=== PATIENT | female | born 1975 | race Caucasian/White ===

== ENCOUNTER 2018-03-23 10:05 | Inpatient (IN) | payer BC ==
[~2018-03-23] VITALS: Ht 152.4 cm; Wt 52.8 kg
[2018-03-23] VITALS (18 sets, daily range): BP systolic 101–132; BP diastolic 65–87
[~2018-03-23 10:05] MED LIST: ASPIRIN81 MG PO; ENBREL50 MG/1 ML INJ; PLAVIX75 MG PO; TRAZODONE HCL100 MG PO; XARELTO10 MG PO
[2018-03-23] MEDS ORDERED: LACTATED RINGER'S 1,000 ML IV SCH (10:24)
[2018-03-23] MEDS ORDERED: PROMETHAZINE HCL (IM) 25 MG/ML VIAL IV PRN (10:30)
[2018-03-23] MEDS ORDERED: ENALAPRILAT IV INJ 1.25 MG/ML VIAL IV PRN (10:30)
[2018-03-23] MEDS ORDERED: ONDANSETRON HCL INJ 2 MG/ML VIAL IV PRN (10:30)
[2018-03-23] MEDS ORDERED: SODIUM CHLORIDE FLUSH 10 ML SYR INJ PRN (10:30)
[2018-03-23] MEDS ORDERED: HYDROMORPHONE 1MG/1ML INJ IV PRN ×2 (10:30→20:30)
[2018-03-23] MEDS ORDERED: PROMETHAZINE 12.5MG/ NACL 0.9% 50 ML IV PRN (11:00)
[2018-03-23] MEDS: HYDROMORPHONE 2MG/ML 2 MG/ML ML IV PRN ×3 (11:30→17:57)
[2018-03-23] MEDS: FAMOTIDINE 20 MG/2 ML VIAL IV SCH ×2 (11:30→23:29)
[2018-03-23] MEDS ORDERED: PREDNISONE20 MG PO (11:36)
[2018-03-23] MEDS ORDERED: NORCO 10-325 T1 EACH PO (11:36)
[2018-03-23] MEDS ORDERED: eliquis PO (11:36)
[2018-03-23 11:57] LABS: BASOPHILS % 0.2 % (0.0-1.0); EOSINOPHILS # (AUTO) 0.1 (0.0-0.4); EOSINOPHILS % 0.9 % (0.0-6.0); HEMATOCRIT 34.6 % (34.2-44.1); HEMOGLOBIN 11.5 g/dL (12.0-16.0); LYMPHOCYTES # (AUTO) 0.9 (1.0-3.2); MEAN CORPUSCULAR HEMOGLOBIN 31.5 pg (28-32); MEAN CORPUSCULAR HGB CONC 33.2 g/dL (31-35); MEAN CORPUSCULAR VOLUME 94.8 fL (81-99); MONOCYTES # (AUTO) 0.5 (0.2-0.8); MONOCYTES % 9.3 % (4.4-11.3); NEUTROPHILS # (AUTO) 3.9 (2.1-6.9); NEUTROPHILS % 73.4 % (38.7-80.0); PLATELET COUNT 214 x10e3/uL (140-360); RED BLOOD COUNT 3.65 x10e6/uL (3.6-5.1); RED CELL DISTRIBUTION WIDTH 13.9 % (11.7-14.4)
[2018-03-23 12:06] LABS: INR 0.82; PROTHROMBIN TIME 12.1 seconds (11.9-14.5)
[2018-03-23 12:07] LABS: PARTIAL THROMBOPLASTIN TIME 40.7 seconds (23.8-35.5)
[2018-03-23 12:15] LABS: ALANINE AMINOTRANSFERASE 12 IU/L (0-55); ALBUMIN 3.4 g/dL (3.5-5.0); ALBUMIN/GLOBULIN RATIO 0.9 (0.8-2.0); ALKALINE PHOSPHATASE 55 IU/L (40-150); ANION GAP 13.5 mmol/L (8-16); BLOOD UREA NITROGEN 17 mg/dL (7-26); BUN/CREATININE RATIO 27 (6-25); CALCIUM 9.3 mg/dL (8.4-10.2); CARBON DIOXIDE 24 mmol/L (22-29); CHLORIDE 105 mmol/L (98-107); CREATINE KINASE 33 IU/L (29-168); CREATININE, SERUM 0.64 mg/dL (0.57-1.11); EST GLOMERULAR FILTRATION RATE > 60 ML/MIN (60-); GLUCOSE 87 mg/dL (74-118); POTASSIUM 3.5 mmol/L (3.5-5.1); SODIUM 139 mmol/L (136-145)
--- NOTE | 2018-03-23 13:17 | History and Physical ---
INDICATION: Cold leg. Ms. Newell is a 43-year-old female with history of rheumatoid arthritis, currently in remission, along with severe peripheral arterial disease, status post multiple procedures on her right popliteal, anterior and posterior tibial as well as peroneal artery. Last angiogram was approximately 3 months ago. She had severe gangrene of her toes, which improved and was healing. However, approximately 2 days ago, she started experiencing severe pain in her right foot with coolness. Arterial duplex done 2 weeks ago was normal. Arterial duplex done yesterday show an occluded posterior tibial artery, which was chronically occluded and monophasic with reduced flow in her anterior tibial and peroneal arteries. She was asked to be admitted to the hospital for the above-mentioned critical limb ischemia. PAST MEDICAL HISTORY: Listed above. SOCIAL HISTORY: Patient has smoked in the past, does not smoke at present. DRUG ALLERGIES: SULFA AND PENICILLIN. REVIEW OF SYSTEMS: Negative, except as dictated in the history of present illness. PHYSICAL EXAMINATION VITAL SIGNS: Afebrile. Heart rate is 94. Blood pressure 121/88, 81. O2 sat 99%. CARDIOVASCULAR: Regular rhythm with no murmurs or gallops. RESPIRATORY: Clear to auscultation bilaterally. ABDOMEN: Soft. Bowel sounds heard adequately. EXTREMITIES: No edema. Right leg pedal pulses could not be felt. Left leg pedal pulses are 2+. LABS: Pending at the time of this dictation. ASSESSMENT: Critical limb ischemia with likely thrombotic occlusion of the right anterior tibial stent. Urgent labs along with anticoagulation and intravenous heparin. The patient requires urgent angiogram of the right lower extremity with intervention as indicated. The risks, benefits and alternatives of the procedure were discussed with the patient. She is agreeable for the same. Job#: [id number]
[2018-03-23 17:13] LABS: BILIRUBIN,URINE NEGATIVE (NEGATIVE); CLARITY,URINE CLEAR (CLEAR); COLOR,URINE YELLOW (YELLOW); KETONES,URINE NEGATIVE (NEGATIVE); LEUKOCYTE ESTERASE ,URINE NEGATIVE (NEGATIVE); NITRITE,URINE NEGATIVE (NEGATIVE); PROTEIN,URINE DIPSTICK NEGATIVE (NEGATIVE); URINE UROBILINOGEN 0.2 mg/dL (0.2 - 1)
[2018-03-23 17:20] LABS: EPITHELIAL CELLS,URINE FEW /LPF
[2018-03-23] MEDS ORDERED: LIDOCAINE HCL 2% LOCAL 20 ML VIAL ONE (18:43)
[2018-03-23] MEDS ORDERED: HEPARIN SOD/SOD CHLORIDE 2,000 ML ONE (18:44)
--- NOTE | 2018-03-23 18:57 | Diagnostic Imaging Report ---
EXAMINATION: CHEST SINGLE (PORTABLE) INDICATION: \S\Chest pain, look for CHF, enlarge Mediastinum. Cold feet. COMPARISON: None FINDINGS: AP view TUBES and LINES: None. LUNGS: Lungs are well inflated. Lungs are clear. There is no evidence of pneumonia or pulmonary edema. PLEURA: No pleural effusion or pneumothorax. HEART AND MEDIASTINUM: The cardiomediastinal silhouette is unremarkable. BONES AND SOFT TISSUES: No acute osseous lesion. Soft tissues are unremarkable. UPPER ABDOMEN: No free air under the diaphragm. IMPRESSION: No acute thoracic abnormality. Signed by: Dr. Caden Mcclain M.D. on 03/23/2018 6:54 PM
[2018-03-23] MEDS ORDERED: MIDAZOLAM HCL 2 MG/2 ML VIAL ONE ×3 (19:01→19:19)
[2018-03-23] MEDS ORDERED: FENTANYL CITRATE/PF 100MCG/2 ML INJ ONE ×2 (19:01→19:20)
[2018-03-23] MEDS ORDERED: IOPAMIDOL 300MG/ML 50ML INFUS..BTL IV ONE (19:01)
[2018-03-23] MEDS ORDERED: SODIUM CHLORIDE 0.9% 1000ML 1,000 ML ONE ×2 (19:12→19:40)
[2018-03-23] MEDS ORDERED: HEPARIN SOD (PORCINE) 1000 UNIT/ML 30ML ONE (19:16)
[2018-03-23] MEDS ORDERED: NITROGLYCERIN/D5W 200 MCG/ML 250 ML ONE (19:16)
[2018-03-23] MEDS: SODIUM CHLORIDE 0.9% 1000ML 1,000 ML IV SCH (19:40)
[2018-03-23] MEDS ORDERED: IOPAMIDOL 300MG/ML 100 ML INFUS..BTL IV ONE (19:42)
[2018-03-23] MEDS ORDERED: ALTEPLASE 50 MG/VIAL (29 MILLION IU) IV ONE (19:46)
[2018-03-23] MEDS ORDERED: ALTEPLASE 50 MG/VIAL (29 MILLION IU) IV SCH (20:30)
[2018-03-23] MEDS ORDERED: HEPARIN 25,000 UNIT/D5W 250ML 250 ML IV PRN (20:30)
[2018-03-23] MEDS ORDERED: HEPARIN 25,000U/0.45% NS 250ML 250 ML ONE (20:57)
[2018-03-23] MEDS: HYDROCODONE/APAP 7.5MG-325MG 1 EA TAB PO PRN (21:03)
[2018-03-23] MEDS: ALTEPLASE RECOMBINANT 2 MG in SODIUM CHLORIDE 0.9% 50ML 50 ML IV SCH (21:15)
[2018-03-23] MEDS: MORPHINE SULFATE INJ 4 MG/ML INJ IV PRN (23:00)
[2018-03-24] VITALS (80 sets, daily range): BP systolic 110–155; BP diastolic 72–109
[2018-03-24] MEDS: ALTEPLASE RECOMBINANT 2 MG in SODIUM CHLORIDE 0.9% 50ML 50 ML IV SCH ×3 (01:15→09:50)
[2018-03-24] MEDS: MORPHINE SULFATE INJ 4 MG/ML INJ IV PRN ×5 (02:00→20:20)
[2018-03-24] MEDS: HYDROCODONE/APAP 7.5MG-325MG 1 EA TAB PO PRN (04:30)
[2018-03-24] MEDS: HYDROMORPHONE 2MG/ML 2 MG/ML ML IV PRN ×2 (04:30→22:50)
[2018-03-24 04:39] LABS: BASOPHILS % 0.3 % (0.0-1.0); EOSINOPHILS % 1.1 % (0.0-6.0); HEMATOCRIT 33.6 % (34.2-44.1); HEMOGLOBIN 11.1 g/dL (12.0-16.0); LYMPHOCYTES # (AUTO) 1.1 (1.0-3.2); LYMPHOCYTES % 30.1 % (18.0-39.1); MEAN CORPUSCULAR HEMOGLOBIN 31.3 pg (28-32); MEAN CORPUSCULAR VOLUME 94.6 fL (81-99); MONOCYTES # (AUTO) 0.4 (0.2-0.8); MONOCYTES % 11.1 % (4.4-11.3); NEUTROPHILS # (AUTO) 2.1 (2.1-6.9); NEUTROPHILS % 57.1 % (38.7-80.0); PLATELET COUNT 203 x10e3/uL (140-360); RED BLOOD COUNT 3.55 x10e6/uL (3.6-5.1); RED CELL DISTRIBUTION WIDTH 13.8 % (11.7-14.4)
[2018-03-24 05:03] LABS: ANION GAP 13.8 mmol/L (8-16); BLOOD UREA NITROGEN 9 mg/dL (7-26); BUN/CREATININE RATIO 15 (6-25); CALCIUM 8.7 mg/dL (8.4-10.2); CARBON DIOXIDE 21 mmol/L (22-29); CHLORIDE 109 mmol/L (98-107); CREATININE, SERUM 0.62 mg/dL (0.57-1.11); EST GLOMERULAR FILTRATION RATE > 60 ML/MIN (60-); GLUCOSE 99 mg/dL (74-118); POTASSIUM 3.8 mmol/L (3.5-5.1); SODIUM 140 mmol/L (136-145)
[2018-03-24] MEDS: CADEXOMER IODINE 30 GM TUBE TOP SCH (09:00)
[2018-03-24] MEDS ORDERED: BALSAM PERU/CASTOR OIL 60 GM OINT...G. TP SCH ×2 (09:00→17:00)
[2018-03-24] MEDS: FAMOTIDINE 20 MG/2 ML VIAL IV SCH ×2 (09:20→22:50)
[2018-03-24] MEDS: SODIUM CHLORIDE 0.9% 1000ML 1,000 ML IV SCH (09:50)
[2018-03-24] MEDS ORDERED: HEPARIN SOD (PORCINE) 1000 UNIT/ML 30ML ONE (12:49)
[2018-03-24] MEDS ORDERED: MIDAZOLAM HCL 2 MG/2 ML VIAL ONE ×3 (12:49→13:34)
[2018-03-24] MEDS ORDERED: IOPAMIDOL 300MG/ML 100 ML INFUS..BTL IV ONE (12:50)
[2018-03-24] MEDS ORDERED: HEPARIN SOD/SOD CHLORIDE 2,000 ML ONE (12:50)
[2018-03-24] MEDS ORDERED: NITROGLYCERIN/D5W 200 MCG/ML 250 ML ONE (12:50)
[2018-03-24] MEDS ORDERED: FENTANYL CITRATE/PF 100MCG/2 ML INJ ONE ×2 (12:50→13:34)
[2018-03-24] MEDS ORDERED: LIDOCAINE HCL 2% LOCAL 20 ML VIAL ONE (12:50)
[2018-03-24] MEDS ORDERED: HYDROMORPHONE 2MG/ML 2 MG/ML ML ONE (16:26)
[2018-03-24] MEDS: ALPRAZOLAM 1 MG TAB PO PRN (16:28)
[2018-03-24] MEDS ORDERED: HYDROMORPHONE 2MG/ML 2 MG/ML ML IV PRN (18:00)
[2018-03-24 18:37] LABS: BASOPHILS % 0.2 % (0.0-1.0); EOSINOPHILS % 0.2 % (0.0-6.0); HEMATOCRIT 29.5 % (34.2-44.1); HEMOGLOBIN 9.9 g/dL (12.0-16.0); LYMPHOCYTES # (AUTO) 0.7 (1.0-3.2); LYMPHOCYTES % 17.3 % (18.0-39.1); MEAN CORPUSCULAR HEMOGLOBIN 31.2 pg (28-32); MEAN CORPUSCULAR HGB CONC 33.6 g/dL (31-35); MEAN CORPUSCULAR VOLUME 93.1 fL (81-99); MONOCYTES # (AUTO) 0.4 (0.2-0.8); NEUTROPHILS # (AUTO) 3.1 (2.1-6.9); NEUTROPHILS % 72.8 % (38.7-80.0); PLATELET COUNT 128 x10e3/uL (140-360); RED BLOOD COUNT 3.17 x10e6/uL (3.6-5.1); RED CELL DISTRIBUTION WIDTH 13.4 % (11.7-14.4)
[2018-03-24] MEDS: DIPHENHYDRAMINE HCL INJ 50 MG/ML VIAL IV PRN (18:42)
[2018-03-24 18:50] LABS: INR 0.91; PROTHROMBIN TIME 13.1 seconds (11.9-14.5)
[2018-03-24 18:51] LABS: PARTIAL THROMBOPLASTIN TIME 43.6 seconds (23.8-35.5)
[2018-03-24] MEDS: ONDANSETRON HCL INJ 2 MG/ML VIAL IV PRN (22:50)
[2018-03-25] VITALS (42 sets, daily range): BP systolic 86–162; BP diastolic 54–116
[2018-03-25] MEDS: HYDROMORPHONE 2MG/ML 2 MG/ML ML IV PRN ×6 (01:49→23:48)
[2018-03-25] MEDS: DIPHENHYDRAMINE HCL INJ 50 MG/ML VIAL IV PRN ×2 (02:05→23:14)
[2018-03-25] MEDS: HEPARIN 25,000 UNIT/D5W 250ML 250 ML IV SCH ×2 (02:41→18:00)
[2018-03-25 02:45] LABS: BASOPHILS % 0.3 % (0.0-1.0); HEMATOCRIT 36.6 % (34.2-44.1); HEMOGLOBIN 12.4 g/dL (12.0-16.0); LYMPHOCYTES # (AUTO) 0.7 (1.0-3.2); LYMPHOCYTES % 18.4 % (18.0-39.1); MEAN CORPUSCULAR HEMOGLOBIN 31.7 pg (28-32); MEAN CORPUSCULAR HGB CONC 33.9 g/dL (31-35); MEAN CORPUSCULAR VOLUME 93.6 fL (81-99); MONOCYTES # (AUTO) 0.4 (0.2-0.8); MONOCYTES % 10.1 % (4.4-11.3); NEUTROPHILS # (AUTO) 2.8 (2.1-6.9); NEUTROPHILS % 69.9 % (38.7-80.0); PLATELET COUNT 146 x10e3/uL (140-360); RED BLOOD COUNT 3.91 x10e6/uL (3.6-5.1); RED CELL DISTRIBUTION WIDTH 13.5 % (11.7-14.4)
[2018-03-25 03:03] LABS: ANION GAP 14.3 mmol/L (8-16); BLOOD UREA NITROGEN 6 mg/dL (7-26); BUN/CREATININE RATIO 10 (6-25); CALCIUM 8.7 mg/dL (8.4-10.2); CARBON DIOXIDE 20 mmol/L (22-29); CHLORIDE 105 mmol/L (98-107); EST GLOMERULAR FILTRATION RATE > 60 ML/MIN (60-); GLUCOSE 93 mg/dL (74-118); POTASSIUM 3.3 mmol/L (3.5-5.1); SODIUM 136 mmol/L (136-145)
[2018-03-25] MEDS: MORPHINE SULFATE INJ 4 MG/ML INJ IV PRN ×3 (08:17→20:20)
--- NOTE | 2018-03-25 08:34 | Operative Report ---
DATE OF PROCEDURE: March 24, 2018 INDICATIONS: Critical limb ischemia with gangrene of the right lower extremity. PROCEDURES PERFORMED 1. Unilateral extremity angiogram with third order catheter placement from the left femoral artery to the right superficial femoral artery. 2. Removal of lysis catheter. 3. Primary thrombectomy of the right popliteal artery. 4. Primary thrombectomy of the right anterior tibial artery. COMPLICATIONS: Unable to restore perfusion. RECOMMENDATIONS: Right below-knee amputation. BLOOD LOSS: 15 mL. SUMMARY: Existing sheath in the left femoral artery was advanced to the right superficial femoral artery (3rd-order catheter placement). Unilateral extremity angiogram revealed excellent flow without minimal occlusions until the level of the popliteal stent. However, the anterior tibial artery, posterior tibial artery, and peroneal artery were completely occluded. The lysis catheter was removed. Multiple attempts at aspiration thrombectomy primarily were done in the right popliteal and anterior tibial arteries; however, no flow could be establish. Large amounts of thrombus burden were noted in the pedal vessels. The left groin sheath was exchanged to a short 6-Liberian sheath, secured in place under manual pressure. Patient transferred to the ICU in stable condition with recommendations for right below-knee amputation. Job#: [id number] STACIA
--- NOTE | 2018-03-25 08:45 | Operative Report ---
DATE OF PROCEDURE: March 23, 2018 INDICATIONS: Peripheral arterial disease with critical limb ischemia and gangrene of the right lower extremity. PROCEDURES PERFORMED 1. Third-order catheter placement from the left femoral artery to the right superficial femoral artery with unilateral extremity angiogram. 2. Additional third-order catheter placement from the left femoral artery to the right anterior tibial artery. 3. Initiation of transcatheter thrombolysis. 4. Primary thrombectomy of the right popliteal and anterior tibial arteries. COMPLICATIONS: None. RECOMMENDATIONS: Eighteen to 24 hours of the intra-arterial tPA and intra-arterial heparin for the potential for thrombectomy overnight. Access obtained in the left femoral artery. Patient was transferred to the ICU in stable condition. Job#: [id number] SHALINI
[2018-03-25] MEDS: FAMOTIDINE 20 MG/2 ML VIAL IV SCH ×2 (08:52→20:39)
[2018-03-25] MEDS: CADEXOMER IODINE 30 GM TUBE TOP SCH (08:53)
[2018-03-25] MEDS: ALPRAZOLAM 1 MG TAB PO PRN ×2 (10:12→20:00)
[2018-03-25] MEDS ORDERED: POTASSIUM CHLORIDE 20 MEQ TAB CR PO NR (13:15)
--- NOTE | 2018-03-25 15:28 | Progress Note ---
DATE: March 25, 2018 CARDIOLOGY PROGRESS NOTE SUBJECTIVE: Patient denies chest pain or shortness of breath. OBJECTIVE VITAL SIGNS: Temperature 97.6 degrees, pulse 106, respiratory rate 36, blood pressure 112/72, oxygen saturation 95% on room air. GENERAL: Awake, alert, in no acute distress. CARDIOVASCULAR: Normal rate, regular rhythm. No murmur. Normal S1 and S2. ABDOMEN: Soft, nontender. EXTREMITIES: No edema. Right lower extremity with dressing in place. CARDIAC MEDICATIONS: Heparin drip. LABS: WBC 3.96, hemoglobin 12.4, hematocrit 36.6, platelets 146. Sodium 136, potassium 3.3, chloride 105, CO2 20, BUN 6, creatinine 0.6. TELEMETRY: Sinus tachycardia. IMPRESSION 1. Critical limb ischemia of the right lower extremity. 2. Rheumatoid arthritis. 3. Peripheral arterial disease. RECOMMENDATIONS: General Surgery has been consulted for BKA as we were unsuccessful in revascularizing the right lower extremity. Continue current cardiac medications. Replete electrolytes. Monitor on telemetry. Patient is scheduled for BKA in the morning. Continue current medications. Job#: [id number] EV
[2018-03-25] MEDS: HYDROCODONE/APAP 7.5MG-325MG 1 EA TAB PO PRN ×2 (16:25→23:14)
[2018-03-25] MEDS ORDERED: ACETAMINOPHEN 650 MG SUPP PR PRN ×2 (17:30)
[2018-03-25] MEDS: VANCOMYCIN 1GM/NS 250 ML 250 ML IV SCH (17:30)
[2018-03-25] MEDS ORDERED: ACETAMINOPHEN 325 MG TAB PO PRN ×2 (17:30)
[2018-03-25] MEDS ORDERED: ACETAMINOPHEN 1000 MG/100 ML IV PRN (17:30)
[2018-03-25] MEDS ORDERED: PIPER-TAZ 3.375 GM 50 ML IV SCH (18:00)
[2018-03-25] MEDS: ONDANSETRON HCL INJ 2 MG/ML VIAL IV PRN (20:20)
[2018-03-25] MEDS: MEROPENEM 1 GM VIAL IV SCH (20:39)
[2018-03-25 21:31] LABS: INR 0.9
[2018-03-25 21:32] LABS: PARTIAL THROMBOPLASTIN TIME 50.2 seconds (23.8-35.5)
[2018-03-25] MEDS ORDERED: MEROPENEM 1GM 100 ML IV SCH (22:00)
[2018-03-25] MEDS: SODIUM CHLORIDE 0.9% 1000ML 1,000 ML IV SCH (22:21)
[2018-03-26] VITALS (64 sets, daily range): BP systolic 107–189; BP diastolic 60–117
[2018-03-26] MEDS: MORPHINE SULFATE INJ 4 MG/ML INJ IV PRN ×3 (01:06→06:06)
[2018-03-26] MEDS: ALPRAZOLAM 1 MG TAB PO PRN ×3 (01:06→20:38)
[2018-03-26] MEDS: ONDANSETRON HCL INJ 2 MG/ML VIAL IV PRN (01:06)
[2018-03-26] MEDS: SODIUM CHLORIDE 0.9% 1000ML 1,000 ML IV SCH ×3 (01:50→16:20)
[2018-03-26] MEDS: MEROPENEM 1 GM VIAL IV SCH ×3 (02:01→18:37)
[2018-03-26] MEDS: HYDROMORPHONE 2MG/ML 2 MG/ML ML IV PRN ×3 (02:02→09:08)
[2018-03-26 04:40] LABS: BASOPHILS % 0.3 % (0.0-1.0); EOSINOPHILS # (AUTO) 0.1 (0.0-0.4); HEMATOCRIT 32.7 % (34.2-44.1); HEMOGLOBIN 10.7 g/dL (12.0-16.0); LYMPHOCYTES % 14.9 % (18.0-39.1); MEAN CORPUSCULAR HEMOGLOBIN 30.5 pg (28-32); MEAN CORPUSCULAR HGB CONC 32.7 g/dL (31-35); MEAN CORPUSCULAR VOLUME 93.2 fL (81-99); MONOCYTES # (AUTO) 0.6 (0.2-0.8); MONOCYTES % 9.3 % (4.4-11.3); NEUTROPHILS # (AUTO) 5.1 (2.1-6.9); NEUTROPHILS % 73.9 % (38.7-80.0); PLATELET COUNT 148 x10e3/uL (140-360); RED BLOOD COUNT 3.51 x10e6/uL (3.6-5.1); RED CELL DISTRIBUTION WIDTH 13.3 % (11.7-14.4)
[2018-03-26 05:04] LABS: ANION GAP 13.8 mmol/L (8-16); BLOOD UREA NITROGEN 8 mg/dL (7-26); BUN/CREATININE RATIO 13 (6-25); CARBON DIOXIDE 22 mmol/L (22-29); CHLORIDE 106 mmol/L (98-107); CREATININE, SERUM 0.62 mg/dL (0.57-1.11); EST GLOMERULAR FILTRATION RATE > 60 ML/MIN (60-); GLUCOSE 112 mg/dL (74-118); POTASSIUM 3.8 mmol/L (3.5-5.1); SODIUM 138 mmol/L (136-145)
[2018-03-26] MEDS: VANCOMYCIN 1GM/NS 250 ML 250 ML IV SCH ×2 (06:07→18:37)
[2018-03-26 08:17] LABS: EOSINOPHILS % (MANUAL) 1 % (0-7); LYMPHOCYTES % (MANUAL) 14 % (19-48); METAMYELOCYTES % (MANUAL) 1 % (0-0); MONOCYTES % (MANUAL) 8 % (3.4-9.0); NEUTROPHILS % (MANUAL) 74 % (40-74)
[2018-03-26 08:18] LABS: ANISOCYTOSIS SLIGHT; PLATELET ESTIMATE SLIGHTLY DECREASED; PLATELET MORPHOLOGY COMMENT NORMAL; RBC MORPHOLOGY COMMENT NORMAL
[2018-03-26] MEDS: CADEXOMER IODINE 30 GM TUBE TOP SCH (08:23)
[2018-03-26] MEDS: FAMOTIDINE 20 MG/2 ML VIAL IV SCH ×2 (08:23→20:38)
--- NOTE | 2018-03-26 09:47 | Progress Note ---
DATE: March 26, 2018 CARDIOLOGY PROGRESS NOTE SUBJECTIVE: Patient denies chest pain or shortness of breath. She is scheduled for right BKA today. OBJECTIVE VITAL SIGNS: Temperature 100.1 degrees, pulse 106, respiratory rate 18, blood pressure 154/80, and oxygen saturation 99% on room air. GENERAL: Awake, alert, in no acute distress. LUNGS: Clear to auscultation bilaterally. No wheezes or crackles. CARDIOVASCULAR: Normal rate, regular rhythm. No murmur. Normal S1 and S2. ABDOMEN: Soft, nontender. EXTREMITIES: No edema. Right foot with gangrenous changes and dressing in place. CARDIAC MEDICATIONS: None. LABS: WBC 6.89, hemoglobin 10.7, hematocrit 32.7, and platelets 148,000. Sodium 138, potassium 3.8, chloride 106, CO2 of 22, BUN 8, and creatinine 0.62. INR is 0.9. IMPRESSIONS 1. Critical limb ischemia of the right lower extremity. 2. Rheumatoid arthritis. 3. Peripheral arterial disease. RECOMMENDATIONS 1. Patient is planned for BKA with general surgery this morning. 2. Continue current medications. 3. Repeat electrolytes. 4. Monitor patient on telemetry. Job#: [id number] CF MOHAMUD
[2018-03-26] MEDS ORDERED: HYDROMORPHONE 2MG/ML 2 MG/ML ML IV PRN (10:00)
[2018-03-26] MEDS ORDERED: BACITRACIN 50,000 UNIT VIAL ONE (11:21)
[2018-03-26] MEDS ORDERED: NEOSTIGMINE 1 MG/ML 10ML VIAL ONE (13:09)
[2018-03-26] MEDS ORDERED: BACITRACIN ZINC 15 GM OINT ONE (13:09)
[2018-03-26] MEDS ORDERED: ONDANSETRON HCL INJ 2 MG/ML VIAL ONE ×2 (14:07→17:45)
[2018-03-26] MEDS ORDERED: HYDROMORPHONE 2MG/ML 2 MG/ML ML ONE (14:12)
[2018-03-26] MEDS ORDERED: HYDROMORPHONE 0.2MG/ML-SOD CHL 30ML PCA SYRINGE IV ONE (14:31)
[2018-03-26] MEDS ORDERED: DIPHENHYDRAMINE HCL INJ 50 MG/ML VIAL ONE (14:47)
[2018-03-26] MEDS ORDERED: HYDROMORPHONE 0.2MG/ML-SOD CHL 30ML PCA SYRINGE IV PRN (15:00)
[2018-03-26] MEDS ORDERED: NALOXONE HCL INJ 0.4 MG/ML AMP IV PRN (15:00)
[2018-03-26] MEDS ORDERED: DIPHENHYDRAMINE HCL 25 MG CAP PO PRN (15:00)
[2018-03-26] MEDS ORDERED: SEVOFLURANE INHAL SOLN 250 ML PEN BTL ONE (17:45)
[2018-03-26] MEDS ORDERED: DEXAMETHASONE SOD PHOS INJ 4 MG/ML VIAL ONE (17:45)
[2018-03-26] MEDS ORDERED: LIDOCAINE HCL 2% LOCAL INJ 5 ML SDV VIAL INJ ONE (17:45)
[2018-03-26] MEDS ORDERED: PROPOFOL IV EMULSION 10 MG/ML 20 ML VIAL ONE (17:45)
[2018-03-26] MEDS ORDERED: ACETAMINOPHEN 1000 MG/100 ML IV ONE (17:45)
[2018-03-26] MEDS ORDERED: MIDAZOLAM HCL 2 MG/2 ML VIAL ONE (17:46)
[2018-03-26] MEDS ORDERED: MORPHINE SULFATE INJ 10 MG/ML ONE (17:46)
[2018-03-26] MEDS ORDERED: FENTANYL CITRATE/PF 100MCG/2 ML INJ ONE (17:46)
[2018-03-26] MEDS: DIPHENHYDRAMINE HCL INJ 50 MG/ML VIAL IV PRN (18:54)
--- NOTE | 2018-03-26 20:14 | Operative Report ---
DATE OF PROCEDURE: March 26, 2018 PREOPERATIVE DIAGNOSES 1. Gangrene of the right foot. 2. Severe peripheral vascular disease with non-reconstructible vascular insufficiency to the right foot. PROCEDURE PERFORMED: Right ixexz-dnz-pglg amputation. LOZENGE MAKER HELPER: Jack Ortega. ESTIMATED BLOOD LOSS: Minimal. DRAINS: None. COMPLICATIONS: None. INDICATIONS AND FINDINGS: This patient is a 43-year-old female admitted to Dr. Calderon's services with gangrene of the right leg. Despite of the aggressive management by interventional cardiology, by Dr. Calderon, she had developed gangrene of the right foot and it was not salvageable. Right nghll-doh-zygt amputation was then requested. DESCRIPTION OF THE PROCEDURE: With the patient lying on the operating table in the supine position after administration of general anesthesia, she was prepped and draped for right rlimh-jss-ddzh amputation. A long posterior flap was made with a short anterior flap and then dissection was carried down through the skin, subcutaneous tissues, and the muscle until we identified the tibia. The periosteum was elevated and then transected the tibia with the Gigli saw. We continued the dissection across the muscles of the anterior and lateral compartments of the leg and posterior compartment. We identified the fibula and transected the fibula with the same manner using the Gigli saw also about 2 cm superior to the transection of the tibia. The neurovascular bundles were tied off and suture ligated with 2-0 silk for the artery and tied off with 2-0 silk for the vein. The nerve was transected and tied off with 2-0 Vicryl to prevent bleeding. After we transected both bones, then we completed the amputation using the steak knife and then we had a long viable posterior flap. We went ahead and then closed the long posterior flap over the anterior flap using the muscle to cover the bone with series of interrupted 2-0 Vicryl sutures. The skin was closed with interrupted vertical mattress sutures with 3-0 silk. At the end of the procedure, the stump appeared to be viable and bulky. The patient tolerated the procedure well and was taken to recovery room in stable condition. Job#: [id number] YUN
[2018-03-26] MEDS: BALSAM PERU/CASTOR OIL 60 GM OINT...G. TP PRN (21:30)
[2018-03-26] MEDS: ACETAMINOPHEN 325 MG TAB PO PRN (23:20)
[2018-03-27] VITALS (67 sets, daily range): BP systolic 96–174; BP diastolic 23–122
[2018-03-27] MEDS: MEROPENEM 1 GM VIAL IV SCH ×3 (01:59→17:50)
[2018-03-27 04:52] LABS: BASOPHILS % 0.3 % (0.0-1.0); EOSINOPHILS % 0.4 % (0.0-6.0); HEMOGLOBIN 9.9 g/dL (12.0-16.0); LYMPHOCYTES # (AUTO) 1.2 (1.0-3.2); LYMPHOCYTES % 16.3 % (18.0-39.1); MEAN CORPUSCULAR HEMOGLOBIN 30.9 pg (28-32); MEAN CORPUSCULAR HGB CONC 31.9 g/dL (31-35); MEAN CORPUSCULAR VOLUME 96.9 fL (81-99); MONOCYTES # (AUTO) 1.1 (0.2-0.8); MONOCYTES % 14.9 % (4.4-11.3); NEUTROPHILS % 67.8 % (38.7-80.0); PLATELET COUNT 127 x10e3/uL (140-360); RED CELL DISTRIBUTION WIDTH 13.2 % (11.7-14.4)
[2018-03-27] MEDS: SODIUM CHLORIDE 0.9% 1000ML 1,000 ML IV SCH ×2 (05:05→17:50)
[2018-03-27] MEDS: VANCOMYCIN 1GM/NS 250 ML 250 ML IV SCH ×2 (05:05→17:50)
[2018-03-27] MEDS: ALPRAZOLAM 1 MG TAB PO PRN ×2 (05:05→10:51)
[2018-03-27 05:09] LABS: ANION GAP 13.7 mmol/L (8-16); BLOOD UREA NITROGEN 6 mg/dL (7-26); BUN/CREATININE RATIO 10 (6-25); CALCIUM 8.8 mg/dL (8.4-10.2); CARBON DIOXIDE 22 mmol/L (22-29); CHLORIDE 107 mmol/L (98-107); CREATININE, SERUM 0.58 mg/dL (0.57-1.11); EST GLOMERULAR FILTRATION RATE > 60 ML/MIN (60-); GLUCOSE 96 mg/dL (74-118); POTASSIUM 3.7 mmol/L (3.5-5.1); SODIUM 139 mmol/L (136-145)
[2018-03-27] MEDS: KETOROLAC TROMETHAMINE 30 MG/ML VIAL IV PRN ×2 (06:32→13:29)
[2018-03-27] MEDS: CADEXOMER IODINE 30 GM TUBE TOP SCH (08:28)
[2018-03-27] MEDS: FAMOTIDINE 20 MG/2 ML VIAL IV SCH ×2 (08:28→21:34)
[2018-03-27] MEDS: CITALOPRAM HYDROBROMIDE 20 MG TAB PO SCH (10:47)
[2018-03-27] MEDS: LOSARTAN POTASSIUM 100 MG TAB PO SCH (10:47)
[2018-03-27] MEDS: ATENOLOL 50 MG TAB PO SCH (10:47)
[2018-03-27] MEDS: ACETAMINOPHEN 1000 MG/100 ML IV PRN (12:00)
[2018-03-27] MEDS: HYDROMORPHONE 0.2MG/ML-SOD CHL 30ML PCA SYRINGE IV PRN ×2 (14:00→23:11)
[2018-03-27] MEDS: ATORVASTATIN 20 MG TAB PO SCH (21:34)
[2018-03-28] VITALS (8 sets, daily range): BP systolic 111–167; BP diastolic 61–89
[2018-03-28] MEDS: ACETAMINOPHEN 1000 MG/100 ML IV PRN (00:54)
[2018-03-28] MEDS: MEROPENEM 1 GM VIAL IV SCH ×3 (02:00→18:12)
[2018-03-28] MEDS: ALPRAZOLAM 1 MG TAB PO PRN ×2 (05:26→15:40)
[2018-03-28 05:31] LABS: BASOPHILS % 0.2 % (0.0-1.0); EOSINOPHILS # (AUTO) 0.1 (0.0-0.4); EOSINOPHILS % 0.9 % (0.0-6.0); HEMATOCRIT 28.2 % (34.2-44.1); HEMOGLOBIN 9.4 g/dL (12.0-16.0); LYMPHOCYTES # (AUTO) 0.9 (1.0-3.2); LYMPHOCYTES % 15.8 % (18.0-39.1); MEAN CORPUSCULAR HGB CONC 33.3 g/dL (31-35); MONOCYTES # (AUTO) 0.8 (0.2-0.8); MONOCYTES % 14.4 % (4.4-11.3); NEUTROPHILS % 68.5 % (38.7-80.0); PLATELET COUNT 156 x10e3/uL (140-360); RED BLOOD COUNT 3.03 x10e6/uL (3.6-5.1); RED CELL DISTRIBUTION WIDTH 13.3 % (11.7-14.4)
[2018-03-28 05:33] LABS: MEAN CORPUSCULAR VOLUME 93.1 fL (81-99)
[2018-03-28 06:08] LABS: ANION GAP 12.2 mmol/L (8-16); BLOOD UREA NITROGEN 6 mg/dL (7-26); BUN/CREATININE RATIO 11 (6-25); CALCIUM 8.9 mg/dL (8.4-10.2); CARBON DIOXIDE 25 mmol/L (22-29); CHLORIDE 106 mmol/L (98-107); CREATININE, SERUM 0.55 mg/dL (0.57-1.11); EST GLOMERULAR FILTRATION RATE > 60 ML/MIN (60-); GLUCOSE 97 mg/dL (74-118); POTASSIUM 3.2 mmol/L (3.5-5.1); SODIUM 140 mmol/L (136-145)
--- NOTE | 2018-03-28 07:10 | Progress Note ---
DATE: CARDIOLOGY PROGRESS NOTE SUBJECTIVE: Patient does endorse some palpitations this morning, sinus tachycardia noted. She also is suffering from a lot of sadness given recent limb loss. OBJECTIVE VITAL SIGNS: Pulse 101, respiratory rate 18, blood pressure 150/82, and oxygen saturation 100% on room air. GENERAL: Alert and oriented x 3, resting comfortably in bed, family at the bedside, does not appear to be in any acute distress. LUNGS: Clear to auscultation throughout. No wheezing, rhonchi, or crackles. CARDIOVASCULAR: Regular rate and rhythm. Tachycardic. No murmurs. Normal S1, S2. ABDOMEN: Rounded, soft, and nontender. EXTREMITIES: Lower extremities, right lower extremity covered with dressings status post BKA yesterday. CARDIOVASCULAR MEDICATIONS: None at this point but medications will be adjusted today. LABS: WBC 7.37, hemoglobin 9.9, hematocrit 31.0, and platelets 127. Sodium 139, potassium 3.7, BUN 6, and creatinine 0.58. PT 13.0, INR 0.90, and PTT 50.2. IMPRESSION 1. Peripheral arterial disease, status post below-knee amputations yesterday. Dr. Rowland is managing. 2. Rheumatoid arthritis. 3. History of stent thrombosis, was previously on Eliquis. RECOMMENDATIONS: Continue with above medications. Medications adjusted accordingly for blood pressure management as well as tachycardia. We will discuss with Dr. Rowland time to resume Eliquis and anticoagulant therapy. For now, monitor closely. Maintain on telemetry at all times. Celexa added to address depression and anxiety. We will monitor this patient very closely. Dictated by: Lisandra Campbell NP Job#: [id number] CINTIA
[2018-03-28] MEDS: SODIUM CHLORIDE 0.9% 1000ML 1,000 ML IV SCH (07:46)
[2018-03-28] MEDS: ACETAMINOPHEN 325 MG TAB PO PRN ×3 (07:58→20:00)
[2018-03-28] MEDS: CITALOPRAM HYDROBROMIDE 20 MG TAB PO SCH (08:09)
[2018-03-28] MEDS: FAMOTIDINE 20 MG/2 ML VIAL IV SCH ×2 (08:09→20:08)
[2018-03-28] MEDS: LOSARTAN POTASSIUM 100 MG TAB PO SCH (08:09)
[2018-03-28] MEDS: ATENOLOL 50 MG TAB PO SCH (08:10)
[2018-03-28 08:17] LABS: EOSINOPHILS % (MANUAL) 2 % (0-7); LYMPHOCYTES % (MANUAL) 18 % (19-48); MONOCYTES % (MANUAL) 11 % (3.4-9.0); NEUTROPHILS % (MANUAL) 69 % (40-74); PLATELET ESTIMATE ADEQUATE; PLATELET MORPHOLOGY COMMENT NORMAL; RBC MORPHOLOGY COMMENT NORMAL
[2018-03-28] MEDS: HYDROMORPHONE 0.2MG/ML-SOD CHL 30ML PCA SYRINGE IV PRN ×2 (09:31→23:08)
--- NOTE | 2018-03-28 11:12 | Progress Note ---
DATE: SUBJECTIVE: Patient endorses some palpitations. Also reports fever last night as high as 102.3 and also fatigue. Denies any chest pain or shortness of breath. OBJECTIVE VITAL SIGNS: Temperature 102.3, pulse 108, respiratory rate 20, blood pressure 142/86, oxygen saturation 94% on room air. GENERAL: Alert and oriented x3, resting comfortably in bed. Family at the bedside. Does not appear to be in any acute distress. LUNGS: Diminished breath sounds posterior lower lobes, otherwise clear to auscultation. No wheezing. No rhonchi or crackles. CARDIOVASCULAR: Regular rate and rhythm, tachycardic. No murmur. Normal S1 and S2. ABDOMEN: Soft, nontender. EXTREMITIES: Lower extremities; right BKA. Left lower extremity, absent pedal pulses. No edema. CARDIOVASCULAR MEDICATIONS 1. Atenolol 25 mg p.o. daily. 2. Losartan 50 p.o. daily. 3. Atorvastatin 40 p.o. h.s. LABS: WBC is 5.76, hemoglobin 9.4, hematocrit 28.2, platelets 156. Sodium 140, potassium 3.2, BUN 6, creatinine 0.55. TELEMETRY: Sinus tachycardia. IMPRESSION 1. Peripheral arterial disease, status post below the knee amputation. 2. Rheumatoid arthritis. 3. History of stent thrombosis. 4. Coagulopathy. 5. Febrile. RECOMMENDATIONS: Chest x-ray and blood cultures ordered. Consult infectious disease, Dr. Hawk. Continue the above-listed cardiac medications. Maintain patient on telemetry. Hematology, Dr. Hopper, managing anticoagulation. We will need to discuss timing of resumption with surgeon, Dr. Rowland. Continue to monitor anxiety. Monitor this patient very closely. Dictated by: Lisandra Campbell NP Job#: [id number] [facility]
--- NOTE | 2018-03-28 12:34 | Diagnostic Imaging Report ---
EXAMINATION: CHEST 2 VIEWS INDICATION: Pneumonia COMPARISON: Chest radiograph 03/23/2018. FINDINGS: TUBES and LINES: None. LUNGS: Low lung volumes with mild bilateral perihilar and interstitial opacities. Mild bilateral opacities of the lung bases. PLEURA: No pleural effusion or pneumothorax. HEART AND MEDIASTINUM: The cardiomediastinal silhouette is unremarkable. BONES AND SOFT TISSUES: No acute osseous lesion. Soft tissues are unremarkable. UPPER ABDOMEN: No free air under the diaphragm. IMPRESSION: Lung volumes with mild pulmonary interstitial edema. Patchy opacities at the lung bases, likely atelectasis. Superimposed pneumonia is possible in the appropriate clinical setting. Signed by: Dr. Mauro Rabago MD on 03/28/2018 12:30 PM
[2018-03-28] MEDS: RIVAROXABAN 20 MG TABLET PO SCH (18:13)
[2018-03-28] MEDS: ATORVASTATIN 20 MG TAB PO SCH (20:08)
[2018-03-29] VITALS: BP 130/78
[2018-03-29] MEDS: MEROPENEM 1 GM VIAL IV SCH ×2 (02:20→10:00)
[2018-03-29] MEDS: SODIUM CHLORIDE 0.9% 1000ML 1,000 ML IV SCH ×3 (03:18→23:10)
[2018-03-29 04:50] VITALS: BP 133/77
[2018-03-29] MEDS: ACETAMINOPHEN 325 MG TAB PO PRN (05:07)
[2018-03-29 05:52] LABS: BASOPHILS % 0.1 % (0.0-1.0); HEMATOCRIT 27.6 % (34.2-44.1); HEMOGLOBIN 9.7 g/dL (12.0-16.0); LYMPHOCYTES # (AUTO) 0.8 (1.0-3.2); LYMPHOCYTES % 11.4 % (18.0-39.1); MEAN CORPUSCULAR HEMOGLOBIN 31.3 pg (28-32); MEAN CORPUSCULAR HGB CONC 35.1 g/dL (31-35); MONOCYTES # (AUTO) 0.9 (0.2-0.8); MONOCYTES % 12.9 % (4.4-11.3); NEUTROPHILS # (AUTO) 5.2 (2.1-6.9); NEUTROPHILS % 75.2 % (38.7-80.0); PLATELET COUNT 121 x10e3/uL (140-360); RED CELL DISTRIBUTION WIDTH 13.2 % (11.7-14.4)
[2018-03-29 06:32] LABS: ANION GAP 11.5 mmol/L (8-16); BLOOD UREA NITROGEN 6 mg/dL (7-26); BUN/CREATININE RATIO 11 (6-25); CARBON DIOXIDE 23 mmol/L (22-29); CHLORIDE 98 mmol/L (98-107); CREATININE, SERUM 0.55 mg/dL (0.57-1.11); EST GLOMERULAR FILTRATION RATE > 60 ML/MIN (60-); GLUCOSE 108 mg/dL (74-118)
[2018-03-29 06:40] LABS: CALCIUM 7.3 mg/dL (8.4-10.2); POTASSIUM 2.5 mmol/L (3.5-5.1); SODIUM 130 mmol/L (136-145)
[2018-03-29 07:32] VITALS: BP 120/63
[2018-03-29] MEDS: LOSARTAN POTASSIUM 100 MG TAB PO SCH (09:00)
[2018-03-29] MEDS: FAMOTIDINE 20 MG/2 ML VIAL IV SCH ×2 (10:00→20:42)
[2018-03-29] MEDS: CITALOPRAM HYDROBROMIDE 20 MG TAB PO SCH (10:00)
[2018-03-29] MEDS: ATENOLOL 50 MG TAB PO SCH (10:00)
[2018-03-29] MEDS ORDERED: POTASSIUM CHLORIDE 20 MEQ TAB CR PO ONE (12:30)
[2018-03-29] MEDS: POTASSIUM CHLORIDE 20MEQ/100ML 200 ML IV ONE ×2 (12:30→14:00)
[2018-03-29 13:50] VITALS: BP 112/59
--- NOTE | 2018-03-29 14:13 | Progress Note ---
DATE: March 29, 2018 CARDIOLOGY PROGRESS NOTE SUBJECTIVE: Patient denies chest pain or shortness of breath. She reports she was febrile overnight. OBJECTIVE VITAL SIGNS: Temperature 99.4 degrees, pulse 93, respiratory rate 20, blood pressure 120/63, and oxygen saturation 94% on room air. GENERAL: Awake, alert, in no acute distress. LUNGS: Clear to auscultation bilaterally. No wheezes or crackles. CARDIOVASCULAR: Normal rate, regular rhythm. No murmur. Normal S1 and S2. ABDOMEN: Soft, nontender. EXTREMITIES: No edema. Status post right BKA. CARDIAC MEDICATIONS 1. Atorvastatin 40 mg p.o. nightly. 2. Rivaroxaban 20 mg p.o. daily. 3. Atenolol 25 mg p.o. daily. 4. Losartan 50 mg p.o. daily. LABS: WBC 6.91, hemoglobin 9.7, hematocrit 27.6, platelets 121. Sodium 130, potassium 2.5, chloride 98, CO2 23, BUN 6, creatinine 0.55. Blood culture: No growth to date. Chest x-ray with lung volumes with mild pulmonary interstitial edema. Patchy opacities at the lung bases likely atelectasis. Superimposed pneumonia is possible in the appropriate clinical setting. TELEMETRY: Normal sinus rhythm. IMPRESSION 1. Peripheral arterial disease status post right below-knee amputation. 2. Rheumatoid arthritis. 3. Fever. RECOMMENDATIONS: Antibiotics per infectious disease. Patient continues to have episodes of fever. Continue current cardiac medications. Monitor the patient on telemetry. Anticoagulation per hematology. We will monitor closely. If the patient continues to be febrile, we may need to search for alternate etiologies. Plan to resume the patient on anticoagulation once acceptable from surgical standpoint. Continue current cardiac medications otherwise. Thank you for this consult. We will continue to follow. Job#: [id number]
[2018-03-29] MEDS: ONDANSETRON HCL INJ 2 MG/ML VIAL IV PRN (14:42)
--- NOTE | 2018-03-29 15:35 | Consultation ---
DATE OF CONSULTATION: March 29, 2018 REASON FOR CONSULTATION: Fever. HISTORY OF PRESENT ILLNESS: This patient who is a 43-year-old white female with history of rheumatoid arthritis. The patient has not seen a physician for more than a year because she had ran out of insurance. She was taking Humira. She does also have history of hypercoagulable state, severe peripheral vascular disease. Multiple procedures on the right popliteal, anterior, and tibial artery. The patient had an angiogram 3 months ago, showed severe ischemic changes to her toes. The patient had gangrene of her toes, had amputation. The patient started to have redness and swelling of her right foot with coolness, comes in. Patient underwent with amputation. She is currently laying in bed comfortably. Infectious disease was consulted because she is running fever. The patient was currently lying in bed, has no complaint, but I have reviewed her record. Patient has been running fever actually since March 25. She was admitted on March 23. The patient said that she is feeling feverish on and off, but I think the fever has been running on all the time. LABORATORY DATA: White count is 3.9, hemoglobin 12.4, hematocrit 36. Sodium 136, potassium 3.3, creatinine 0.6. Blood cultures are negative. She had a chest x-ray, which showed patchy opacity at lung base, atelectasis. PHYSICAL EXAMINATION GENERAL: She is currently alert and oriented, does not seem to be in any acute distress. VITALS: Stable. Currently afebrile. HEENT: She is not icteric. NECK: Supple. CHEST: Clear bilaterally. COR: S1 and S2. No murmur. ABDOMEN: Soft. Bowel sounds present. No tenderness. EXTREMITIES: No edema. SKIN: No rash. IMPRESSION: Fever. PLAN: I think the patient's fever due to her rheumatoid arthritis, give her prednisone 20 mg p.o. daily. Clinically otherwise seems to be stable. She will need follow up with the rheumatology. PT, OT, and ambulation. Thank you for asking me to see this patient. Job#: [id number] ROSY
[2018-03-29] MEDS: PREDNISONE 20 MG TAB PO SCH (15:45)
[2018-03-29 16:42] VITALS: BP 120/73
[2018-03-29] MEDS: RIVAROXABAN 20 MG TABLET PO SCH (18:00)
[2018-03-29] MEDS: ALPRAZOLAM 1 MG TAB PO PRN (19:40)
[2018-03-29 20:00] VITALS: BP 112/68
[2018-03-29] MEDS ORDERED: POTASSIUM CHLORIDE 20MEQ/100ML 200 ML IV ONE (20:00)
[2018-03-29] MEDS: ATORVASTATIN 20 MG TAB PO SCH (20:42)
[2018-03-30] VITALS (7 sets, daily range): BP systolic 112–139; BP diastolic 66–89
[2018-03-30] MEDS: HYDROMORPHONE 0.2MG/ML-SOD CHL 30ML PCA SYRINGE IV PRN
--- NOTE | 2018-03-30 01:19 | Consultation ---
DATE OF CONSULTATION: March 29, 2018 REFERRING PHYSICIAN: Dr. Sang Rowland REASON FOR CONSULTATION 1. Right BKA secondary to severe limb ischemia. 2. Severe rheumatoid arthritis. HISTORY: A 43-year-old female with history of RA who is currently in remission, has severe peripheral vascular disease, underwent multiple procedures to right lower extremity as well as to her peroneal artery. Had severe gangrene to her toes. After significant workup, was found to have critical limb ischemia and underwent right BKA a few days ago. Postoperatively, having some temperature, but otherwise doing fairly well. I am being asked to evaluate for rehab needs. PAST MEDICAL HISTORY: Includes rheumatoid arthritis, currently on any biologics. SOCIAL HISTORY: Lives with her spouse in 1-storeyed home. She said she was fairly ambulatory either using a walker or cane or a knee scooter. HABITS: Smoked in the past, but does not presently. ALLERGIES: SULFA, PENICILLIN. REVIEW OF SYSTEMS: Eleven-point review of systems essentially negative except for the above findings. LABS: Sodium 130, potassium was 2.5 earlier today, BUN of 6, creatinine is 0.55. PHYSICAL EXAMINATION VITALS: Temperature 103.1 degree this morning, now much better according to the family. GENERAL: Currently, the patient is awake and alert. Do not have access to the computer due to the fact that computers are not working right now. Nonetheless, labs are noted as above. Right now, she is afebrile according to the most recent readings according to the family. Most current reading is 99.9 degrees. EYES: Gaze conjugate. ORAL: Tongue is midline. NECK: Supple. HEART: Regular. LUNGS: Fair air entry. ABDOMEN: Nontender, nondistended. EXTREMITIES: Functional range of motion to the arms as well as the legs. Sensory-schwartz, has phantom sensation in right lower extremity. Manual muscle testin/5 strength in the upper extremities bilaterally. In the left leg 4/5 strength throughout. On the right leg, she has a dressing and knee immobilizer on. She does have phantom sensation. IMPRESSION 1. Right below the knee amputation secondary to ischemic limb. 2. The patient with rheumatoid arthritis. 3. Temperature, may be atelectasis. We will check with the insurance to see if we can get her to inpatient rehab for precautions of fall. Thank you once again for allowing me to participate in the care of this pleasant but unfortunate patient. VINNIE: 03/29/2018 21:29 Job#: [id number] STACIA
[2018-03-30] MEDS: ONDANSETRON HCL INJ 2 MG/ML VIAL IV PRN ×2 (02:32→10:32)
[2018-03-30 06:51] LABS: BLOOD UREA NITROGEN 12 mg/dL (7-26); BUN/CREATININE RATIO 19 (6-25); CHLORIDE 99 mmol/L (98-107); CREATININE, SERUM 0.63 mg/dL (0.57-1.11); EST GLOMERULAR FILTRATION RATE > 60 ML/MIN (60-); GLUCOSE 135 mg/dL (74-118); POTASSIUM 3.2 mmol/L (3.5-5.1); SODIUM 132 mmol/L (136-145)
[2018-03-30] MEDS: ATENOLOL 50 MG TAB PO SCH (08:31)
[2018-03-30] MEDS: PREDNISONE 20 MG TAB PO SCH (08:31)
[2018-03-30] MEDS: CITALOPRAM HYDROBROMIDE 20 MG TAB PO SCH (08:31)
[2018-03-30] MEDS: FAMOTIDINE 20 MG/2 ML VIAL IV SCH ×2 (08:31→20:52)
[2018-03-30] MEDS: LOSARTAN POTASSIUM 100 MG TAB PO SCH (08:31)
[2018-03-30 08:37] LABS: CALCIUM 7.9 mg/dL (8.4-10.2); CARBON DIOXIDE 15 mmol/L (22-29)
[2018-03-30 08:51] LABS: ANION GAP 21.2 mmol/L (8-16)
--- NOTE | 2018-03-30 11:58 | Progress Note ---
DATE: March 30, 2018 CARDIOLOGY PROGRESS NOTE SUBJECTIVE: Patient denies chest pain or shortness of breath. Her pain is not well controlled and continues to require Dilaudid UTILIZATION MANAGEMENT UM NURSE. Her main complaint is of nausea. OBJECTIVE VITAL SIGNS: Temperature 99.4 degrees, pulse 86, respiratory rate 16, blood pressure 125/82, oxygen saturation 98% on room air. GENERAL: Awake, alert, in no acute distress. LUNGS: Clear to auscultation bilaterally. No wheezes or crackles. CARDIOVASCULAR: Normal rate, regular rhythm. No murmur. Normal S1 and S2. ABDOMEN: Soft, nontender. EXTREMITIES: No edema. Status post right BKA. CARDIAC MEDICATIONS 1. Losartan 50 mg p.o. daily. 2. Atenolol 25 mg p.o. daily. 3. Atorvastatin 40 mg p.o. q.h.s. 4. Rivaroxaban 20 mg p.o. daily. LABS: Sodium 132, potassium 3.2, chloride 99, CO2 of 15, BUN 12, creatinine 0.63. TELEMETRY: Normal sinus rhythm. IMPRESSION 1. Peripheral arterial disease, status post right below-knee amputation. 2. Rheumatoid arthritis. 3. Fever. 4. Abnormal chest x-ray, suspect atelectasis. RECOMMENDATIONS: Antibiotics per infectious disease. Encourage incentive spirometry. Pain control per surgery. We will continue patient on current cardiac medications. Monitor patient on telemetry. Once pain is controlled, plan for disposition to inpatient rehab for further physical therapy. Thank you for this consult. We will continue to follow. Job#: [id number] ROSY
[2018-03-30] MEDS: SODIUM CHLORIDE 0.9% 1000ML 1,000 ML IV SCH ×2 (12:18→20:52)
[2018-03-30] MEDS: RIVAROXABAN 20 MG TABLET PO SCH (16:50)
[2018-03-30] MEDS: ALPRAZOLAM 1 MG TAB PO PRN (18:09)
[2018-03-30] MEDS: ATORVASTATIN 20 MG TAB PO SCH (20:52)
[2018-03-31] VITALS (8 sets, daily range): BP systolic 90–125; BP diastolic 64–92
[2018-03-31] MEDS: PREDNISONE 20 MG TAB PO SCH (08:37)
[2018-03-31] MEDS: CITALOPRAM HYDROBROMIDE 20 MG TAB PO SCH (08:37)
[2018-03-31] MEDS: FAMOTIDINE 20 MG/2 ML VIAL IV SCH ×2 (08:37→21:00)
[2018-03-31] MEDS: LOSARTAN POTASSIUM 100 MG TAB PO SCH (08:37)
[2018-03-31] MEDS: ATENOLOL 50 MG TAB PO SCH (08:39)
[2018-03-31] MEDS: ALPRAZOLAM 1 MG TAB PO PRN ×2 (10:28→15:53)
[2018-03-31] MEDS: KETOROLAC TROMETHAMINE 30 MG/ML VIAL IV PRN (11:54)
[2018-03-31] MEDS: SODIUM CHLORIDE 0.9% 1000ML 1,000 ML IV SCH (14:42)
[2018-03-31] MEDS: RIVAROXABAN 20 MG TABLET PO SCH (16:55)
--- NOTE | 2018-03-31 18:47 | Progress Note ---
DATE: March 31, 2018 CARDIOLOGY PROGRESS NOTE SUBJECTIVE: No major events overnight, no chest pain or shortness of breath. Says she felt some palpitations, but this was likely secondary to anxiety. Says her pain is better controlled now; however, requiring Dilaudid IV per NIPPLE MAKER. OBJECTIVE VITAL SIGNS: Temperature 96.8, pulse 82, respiratory rate 16, blood pressure 115/68, satting 94% on room air. GENERAL: Thin, chronically ill-appearing, white female. No acute distress. CARDIOVASCULAR: Regular rate and rhythm. No murmurs, rubs or gallops. Normal S1, S2. Palpable carotid pulses, palpable radial pulses, palpable femoral pulses. No lower extremity edema. Dressing in place, right lower extremity. LUNGS: Clear to auscultation bilaterally. No distress. ABDOMEN: Soft, nontender, thin. No masses. NEURO AND PSYCH: Alert and oriented to person, place, and time. Normal affect. CARDIOVASCULAR MEDICATIONS: Reviewed. LABORATORY DATA: Reviewed. TELEMETRY DATA: Shows sinus rhythm with occasional sinus tachycardia. IMPRESSIONS 1. Peripheral artery disease, status post right below-knee amputation. 2. Rheumatoid arthritis. 3. Fever. 4. Abnormal chest x-ray, likely atelectasis. RECOMMENDATIONS: Antibiotics per infectious disease, pain control per surgery. Continue patient on current cardiac medications including rivaroxaban given history of multiple thrombosis of her right lower extremity arteries. Once pain is controlled, plan for disposition to inpatient rehab for further physical therapy. She has good circulation up to her amputation site, so wound healing should not be limited by her blood supply. Thank you for this consult. Will continue to follow. Job#: [id number]
[2018-03-31] MEDS: BALSAM PERU/CASTOR OIL 60 GM OINT...G. TP PRN (19:49)
[2018-03-31] MEDS: ATORVASTATIN 20 MG TAB PO SCH (21:30)
[2018-04-01] VITALS (9 sets, daily range): BP systolic 97–124; BP diastolic 54–81
[2018-04-01] MEDS: ALPRAZOLAM 1 MG TAB PO PRN (02:00)
[2018-04-01] MEDS: SODIUM CHLORIDE 0.9% 1000ML 1,000 ML IV SCH ×2 (04:45→15:28)
[2018-04-01] MEDS: HYDROMORPHONE 0.2MG/ML-SOD CHL 30ML PCA SYRINGE IV PRN (06:20)
[2018-04-01] MEDS: LOSARTAN POTASSIUM 100 MG TAB PO SCH (09:00)
[2018-04-01] MEDS: ATENOLOL 50 MG TAB PO SCH (09:00)
[2018-04-01] MEDS: ACETAMINOPHEN 325 MG TAB PO PRN (09:48)
[2018-04-01] MEDS: PREDNISONE 20 MG TAB PO SCH (09:48)
[2018-04-01] MEDS: CITALOPRAM HYDROBROMIDE 20 MG TAB PO SCH (09:48)
[2018-04-01] MEDS: FAMOTIDINE 20 MG/2 ML VIAL IV SCH ×2 (09:48→20:48)
--- NOTE | 2018-04-01 15:55 | Progress Note ---
DATE: April 01, 2018 CARDIOLOGY PROGRESS NOTE SUBJECTIVE: Patient denies chest pain or shortness of breath. OBJECTIVE VITAL SIGNS: Temperature 99 degrees, pulse 92, respiratory rate 18, blood pressure 97/54, oxygen saturation 96% on 2 liters nasal cannula. GENERAL: Awake, alert, in no acute distress. LUNGS: Clear to auscultation bilaterally. No wheezes or crackles. CARDIOVASCULAR: Normal rate, regular rhythm. No murmur. Normal S1 and S2. ABDOMEN: Soft, nontender. EXTREMITIES: Status post right BKA. No edema on the left. CARDIAC MEDICATIONS 1. Atorvastatin 40 mg p.o. nightly. 2. Rivaroxaban 20 mg p.o. daily. 3. Atenolol 25 mg p.o. daily. 4. Losartan 50 mg p.o. daily. LABS: None today. TELEMETRY: Normal sinus rhythm. IMPRESSION 1. Peripheral arterial disease status post right below-knee amputation. 2. Rheumatoid arthritis. 3. Fever. 4. Abnormal chest x-ray, likely atelectasis. RECOMMENDATIONS: Antibiotics per Infectious Disease. Pain control per Surgery. We will consult Urology given patient's urinary retention overnight. Continue current cardiac medications otherwise. Once pain is controlled, patient will be discharged to inpatient rehab for physical therapy. Job#: [id number] ARLEEN
[2018-04-01] MEDS: RIVAROXABAN 20 MG TABLET PO SCH (18:11)
[2018-04-01] MEDS: ATORVASTATIN 20 MG TAB PO SCH (20:48)
[2018-04-02 00:44] VITALS: BP 112/69
[2018-04-02 05:10] VITALS: BP 92/64
[2018-04-02] MEDS: ACETAMINOPHEN 325 MG TAB PO PRN (06:01)
[2018-04-02] MEDS: SODIUM CHLORIDE 0.9% 1000ML 1,000 ML IV SCH ×2 (06:34→20:04)
[2018-04-02 07:55] VITALS: BP 103/64
[2018-04-02] MEDS: ATENOLOL 50 MG TAB PO SCH (09:00)
[2018-04-02] MEDS: FAMOTIDINE 20 MG/2 ML VIAL IV SCH ×2 (09:31→20:20)
[2018-04-02] MEDS: CITALOPRAM HYDROBROMIDE 20 MG TAB PO SCH (09:31)
[2018-04-02] MEDS: PREDNISONE 20 MG TAB PO SCH (09:31)
[2018-04-02] MEDS: LOSARTAN POTASSIUM 100 MG TAB PO SCH (09:35)
[2018-04-02] MEDS ORDERED: HYDROCODONE/APAP 7.5MG-325MG 1 EA TAB PO PRN (12:00)
[2018-04-02] MEDS ORDERED: HYDROMORPHONE 1MG/1ML INJ IV PRN (12:00)
[2018-04-02] MEDS ORDERED: HYDROMORPHONE 2MG/ML 2 MG/ML ML IV PRN ×2 (12:15)
--- NOTE | 2018-04-02 13:58 | Progress Note ---
DATE: April 02, 2018 CARDIOLOGY PROGRESS NOTE SUBJECTIVE: Patient denies chest pain or shortness of breath. OBJECTIVE VITAL SIGNS: Temperature 100 degrees, pulse 59, respiratory rate 17, blood pressure 103/64, oxygen saturation 99%. GENERAL: Awake, alert, in no acute distress. LUNGS: Clear to auscultation bilaterally. No wheezes or crackles. CARDIOVASCULAR: Normal rate, regular rhythm. No murmur. Normal S1 and S2. ABDOMEN: Soft, nontender. EXTREMITIES: Status post right BKA. No edema on the left. CARDIAC MEDICATIONS 1. Losartan 50 mg p.o. daily. 2. Prednisone 20 mg p.o. daily. 3. Atorvastatin 20 mg p.o. nightly. 4. Xarelto 20 mg p.o. daily. 5. Atenolol 25 mg p.o. daily. LABS: None today. TELEMETRY: Normal sinus rhythm. IMPRESSION 1. Peripheral arterial disease status post right below-knee amputation. 2. Rheumatoid arthritis. 3. Fever. 4. Abnormal chest x-ray, likely atelectasis. 5. Urinary retention. RECOMMENDATIONS: Antibiotics per Infectious Disease. Pain control per Surgery. Once the patient is off PROCESS IMPROVEMENT MANAGER pump and pain is controlled, plan to discharge to inpatient rehab for physical therapy. Urology has been consulted given patient's urinary retention. Howard has been placed. Await their recommendations. Continue current medications otherwise. Job#: [id number] ARLEEN
[2018-04-02] MEDS: ALPRAZOLAM 1 MG TAB PO PRN (15:09)
[2018-04-02 16:06] VITALS: BP_SYST 103; BP_SYST 105; BP_DIAS 64; BP_DIAS 72
[2018-04-02] MEDS: RIVAROXABAN 20 MG TABLET PO SCH (18:17)
[2018-04-02 20:00] VITALS: BP 174/83
--- NOTE | 2018-04-02 20:08 | Consultation ---
DATE OF CONSULTATION: April 02, 2018 UROLOGY CONSULTATION REASON FOR CONSULTATION: Urinary retention. HISTORY OF PRESENT ILLNESS: Mee Newell is a 43-year-old woman with history of very minimal urge type urinary incontinence. She denies hematuria, dysuria, urinary tract infections, or urolithiasis. Denies any urological surgery. The patient underwent ceewx-bey-gjke amputation. Following this, the patient had Howard catheter in place. Once the Howard catheter was removed, the patient went into urinary retention. Multiple attempts of voiding were performed. The patient had significant volumes of urine that she was unable expel and Howard catheter was placed with 400 mL of postvoid residual following voiding minimally. PAST MEDICAL AND SURGICAL HISTORY 1. Vasculitis. 2. Right nuiau-aar-hcsw amputation. 3. Rheumatoid arthritis. 4. 0. CURRENT MEDICATIONS: Please refer to the MAR. ALLERGIES: SULFA AND PENICILLINS. SOCIAL HISTORY: The patient has quit smoking. She is to smoke 1 pack per day. She denies current smoking or ethenol drug use. 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 FAMILY HISTORY: Noncontributory to the active urological problems. REVIEW OF SYSTEMS: As consistent with above history of present illness and past medical history. Otherwise, negative for all systems. PHYSICAL EXAMINATION GENERAL: Elderly healthy-appearing 43-year-old woman lying in bed in no apparent distress. VITALS: She is currently afebrile. Vital signs currently stable. ABDOMEN: Soft, nondistended, nontender, without costovertebral angle tenderness. GENITOURINARY: Normal external female genitalia with a Howard catheter in place, draining clear urine out. For the remaining physical examination systems, please refer to the admission history and physical on the chart. LABORATORY STUDIES: The patient's potassium is low at 3.2. Patient did have a low white blood cell count, but today the white blood cell count is normal at 6910, hemoglobin 9.7, platelets are low at 121,000. The patient's sodium is low at 132. Her calcium is low as well. Urinalysis is unremarkable. ASSESSMENT 1. Urinary retention. 2. Leukopenia that is better. 3. Anemia. 4. Thrombocytopenia. 5. Hyperkalemia. 6. Hyponatremia. 7. Hypocalcemia. 8. Urge incontinence. 9. Howard catheter in situ. PLAN 1. Leave the Howard catheter in place. 2. Hematological and electrolyte abnormalities per the primary team. 3. We will follow the patient. 4. Once the patient is an outpatient, we will perform urodynamics study in the office. Thank you very much for involving us in the care of your patient. We will be happy to follow her along with you as well as an outpatient. Job#: [id number] VAS cc:DR. GLORIA PEGUERO
[2018-04-02] MEDS ORDERED: ATORVASTATIN 40 MG TAB PO SCH (21:00)
[2018-04-03] VITALS: BP 108/68
[2018-04-03 04:00] VITALS: BP 111/76
[2018-04-03] MEDS: ACETAMINOPHEN 325 MG TAB PO PRN (05:30)
[2018-04-03 08:25] VITALS: BP 105/63
[2018-04-03] MEDS: ATENOLOL 50 MG TAB PO SCH (09:00)
[2018-04-03] MEDS: PREDNISONE 20 MG TAB PO SCH (09:10)
[2018-04-03] MEDS: FAMOTIDINE 20 MG/2 ML VIAL IV SCH (09:10)
[2018-04-03] MEDS: CITALOPRAM HYDROBROMIDE 20 MG TAB PO SCH (09:10)
[2018-04-03] MEDS: LOSARTAN POTASSIUM 100 MG TAB PO SCH (09:11)
[2018-04-03] MEDS: SODIUM CHLORIDE 0.9% 1000ML 1,000 ML IV SCH (10:23)
[2018-04-03 11:57] VITALS: BP 110/59
[2018-04-03 12:19] LABS: BASOPHILS % 0.1 % (0.0-1.0); EOSINOPHILS % 0.1 % (0.0-6.0); HEMATOCRIT 30.5 % (34.2-44.1); HEMOGLOBIN 10.6 g/dL (12.0-16.0); LYMPHOCYTES # (AUTO) 0.6 (1.0-3.2); LYMPHOCYTES % 4.6 % (18.0-39.1); MEAN CORPUSCULAR HGB CONC 34.8 g/dL (31-35); MEAN CORPUSCULAR VOLUME 89.2 fL (81-99); MONOCYTES % 8.4 % (4.4-11.3); NEUTROPHILS # (AUTO) 10.5 (2.1-6.9); NEUTROPHILS % 85.3 % (38.7-80.0); PLATELET COUNT 98 x10e3/uL (140-360); RED BLOOD COUNT 3.42 x10e6/uL (3.6-5.1); RED CELL DISTRIBUTION WIDTH 13.7 % (11.7-14.4)
[2018-04-03 12:33] LABS: ANION GAP 16.8 mmol/L (8-16); CALCIUM 8.1 mg/dL (8.4-10.2); CREATININE, SERUM 1.07 mg/dL (0.57-1.11)
[2018-04-03 12:40] LABS: POTASSIUM 2.8 mmol/L (3.5-5.1)
[2018-04-03] MEDS ORDERED: POTASSIUM CHLORIDE 10MEQ EA PO ONE ×2 (13:00→14:00)
[2018-04-03 13:11] LABS: LYMPHOCYTES % (MANUAL) 10 % (19-48); MONOCYTES % (MANUAL) 10 % (3.4-9.0); NEUTROPHILS % (MANUAL) 80 % (40-74); RBC MORPHOLOGY COMMENT NORMAL
[2018-04-03 13:12] LABS: PLATELET ESTIMATE SLIGHTLY DECREASED; PLATELET MORPHOLOGY COMMENT NORMAL
[2018-04-03] MEDS ORDERED: POTASSIUM CHLORIDE 20MEQ/100ML 200 ML IV ONE ×2 (13:30→15:00)
[2018-04-03] MEDS ORDERED: POTASSIUM CHLORIDE 20MEQ/15ML UDC NG ONE (13:30)
[2018-04-03 16:16] VITALS: BP 112/81
[2018-04-03] MEDS: RIVAROXABAN 20 MG TABLET PO SCH (16:50)
[2018-04-03] MEDS: ALPRAZOLAM 1 MG TAB PO PRN (17:46)
--- NOTE | 2018-04-04 07:09 | Discharge Summary ---
ADMITTING DIAGNOSES: Critical limb ischemia with suspected thrombotic occlusion of the right anterior tibial stent. DISCHARGE DIAGNOSES 1. Peripheral arterial disease with gangrene of the right lower extremity. COMORBID CONDITIONS: 1. Rheumatoid arthritis. CONSULTANTS 1. General Surgery, Dr. Rowland. 2. Urology, Dr. Child. 3. Rehabilitation, Dr. Agrawal. HISTORY OF PRESENT ILLNESS AND HOSPITAL COURSE: This is a 43-year-old woman with history of rheumatoid arthritis and severe peripheral arterial disease who presented to the ER after developing severe pain in her right foot with coolness. The patient was taken to the cardiac catheterization laboratory and had catheter intra-arterial TPA infusion without successful tenriism of perfusion. The anterior tibial, posterior tibial, and peroneal arteries remained completely occluded past the popliteal stent. General Surgery was therefore consulted for below knee amputation, which the patient had performed. Urology was consulted during hospital stay due to urinary retention after Howard removal. The patient was discharged to inpatient rehab for further physical therapy once cleared by consultants. MEDICATIONS: Please see medication list. ACTIVITY: As tolerated. FOLLOW-UP: Follow up with Dr. Calderon in 2 weeks. PHYSICAL EXAMINATION VITALS: Temperature 96.3 degrees, pulse 78, respiratory rate 18, blood pressure 110/59, and oxygen saturation 100% on room air. GENERAL: Awake and alert, in no acute distress. LUNGS: Clear to auscultation bilaterally. No wheezes or crackles. CARDIOVASCULAR: Normal rate. Regular rhythm. No murmur. Normal S1 and S2. ABDOMEN: Soft and nontender. EXTREMITIES: No edema, status post right BKA. TELEMETRY: Normal sinus rhythm. EMMANUEL PICKETT MD Job#: [id number] GAU MTDD
--- OUTSIDE RECORDS SUMMARY | 2018-04-06 09:25 | XMS REPORT ---
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
--- OUTSIDE RECORDS SUMMARY | 2018-04-06 09:25 | XMS REPORT ---
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 Active Problem Other slater apprentice (current) drug therapy Z79.899 Active Problem Rash R21 Active Problem 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 Medications Medication Code System Code Instructions Start Date End Date Status Dosage Humira Pen [facility] 52165394462 40 MG/0.8ML Subcutaneous every two weeks Jul 29, 2017 Active 0.8 ml Medrol [facility] 69017401316 4 MG Orally q am with food Jul 10, 2017 Active 1 tablet with food or milk in the morning Aspirin [facility] 22765256928 81 mg once a day Active 1 tablet Trazodone HCl [facility] 62975530666 100 MG Orally Once a day Active 1 tablet at bedtime Flexeril [facility] 79785364679 10 MG Orally as needed Jul 10, 2017 Active 1 tablet as needed Trazodone HCl ND 46849445139 100 MG Orally Once a day December 15, 2017 Active 1 tablet at bedtime Xarelto ND 15902751747 10 MG Orally Once a day Active 1 tablet with food Plavix ND 06031648297 75 MG Orally Once a day Active 1 tablet Multivitamins ND 72125539774 Orally Active as directed Benadryl ND 91076895297 otc Orally as needed Active not defined Results No Known Results Summary Purpose eClinicalWorks Submission
--- OUTSIDE RECORDS SUMMARY | 2018-04-06 09:25 | XMS REPORT ---
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
--- OUTSIDE RECORDS SUMMARY | 2018-04-06 09:25 | XMS REPORT ---
Author Author Mickey Anguiano [facility] e[employer] Address Unknown Phone Unavailable Care Team Providers Care Automation And Controls Instructor Name Role Phone Mickey Anguiano CP Unavailable Allergies, Adverse Reactions, Alerts Substance Reaction Event Type amoxilcillin swelling Non Drug Allergy Sulfa Info Not Available Non Drug Allergy Encounters Encounter Location Date Stripper Shovel Operator Mickey Anguiano MD Jul 25, 2014 MRI Mickey Anguiano MD January 02, 2015 6m f/u per Dr.Waller Mickey Anguiano MD January 08, 2015 dexa Mickey Anguiano MD Jul 09, 2014 [facility] Mickey Anguiano MD Jul 09, 2014 6m f/u per Dr.Waller Mickey Anguiano MD Jul 11, 2014 Problems Problem Type Condition ICD-9 Code Onset Dates Condition Status Problem Osteopenia 733.90 Active Problem Rheumatoid arthritis 714.0 Active Problem Unspecified vitamin D deficiency 268.9 Active Assessment Long-term (current) use of other medications - High Risk V58.69 Active Problem Long-term (current) use of other medications - High Risk V58.69 Active Assessment Rheumatoid arthritis 714.0 Active Medications Medication Code System Code Instructions Start Date End Date Status Dosage Multivitamins [facility] [address]-19 Orally Active as directed Benadryl [facility] [address]-10 otc Orally as needed Active Unknown Aspirin [facility] [address]67 Active Unknown Plavix [facility] [address]-85 Active Unknown Enbrel [facility] [address]-93 50 MG/ML Subcutaneous Once a week Jul 07, 2015 Active 1 injection( sureclick pen) Calcium + D [facility] [address]-85 Orally Active as directed Trazodone HCl [facility] 13324501870 100 Active TAKE 1 TABLET BY MOUTH EVERY NIGHT AT BEDTIME Social History Social History Element Qualifiers Date Reported Tobacco Use: . Are you a:: current smoker , How often do you smoke cigarettes?: every day, How many cigarettes a day do you smoke?: 6-10 January 08, 2015 Marital Status: . January 08, 2015 Caffeine: yes. frequency:, 1-5 January 08, 2015 Exercise: yes. rides bike January 08, 2015 Alcohol: socially. 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 OMANI(-> OR=60 mL/min/1.73m2) 110 ALKALINE PHOSPHATASE(-33-115 U/L) 46 eGFR (-> OR=60 mL/min/1.73m2) 127 BILIRUBIN, TOTAL(-0.2-1.2 mg/dL) 0.3 BUN/CREATININE RATIO(-6-22 (calc)) NOT APPLICABLE ALBUMIN/GLOBULIN RATIO(-1.0-2.5 (calc)) 1.2 SODIUM(-135-146 mmol/L) 135 GLOBULIN(-1.9-3.7 g/dL (calc)) 3.4 POTASSIUM(-3.5-5.3 mmol/L) 4.2 GLUCOSE(-65-99 mg/dL) 100 CHLORIDE(-98-110 mmol/L) 103 ALBUMIN(-3.6-5.1 g/dL) 4.2 UREA NITROGEN (BUN)(-7-25 mg/dL) 9 PROTEIN, TOTAL(-6.1-8.1 g/dL) 7.6 SED RATE BY MODIFIED WESTERGREN SED RATE BY MODIFIED WESTERGREN(-< OR=20 mm/h) 8 C-REACTIVE PROTEIN C-REACTIVE PROTEIN(-<0.80 mg/dL) <0.10 CBC (INCLUDES DIFF/PLT) MCHC(-32.0-36.0 g/dL) 33.1 MCH(-27.0-33.0 pg) 33.0 PLATELET COUNT(-140-400 Thousand/uL) 269 RDW(-11.0-15.0 %) 12.9 BASOPHILS(- %) 0.6 ABSOLUTE NEUTROPHILS(-0176-5301 cells/uL) 3660 ABSOLUTE LYMPHOCYTES(-850-3900 cells/uL) 1537 MPV(-7.5-11.5 fL) 8.7 ABSOLUTE BASOPHILS(-0-200 cells/uL) 37 HEMATOCRIT(-35.0-45.0 %) 44.8 NEUTROPHILS(- %) 60.0 MCV(-80.0-100.0 fL) 99.6 RED BLOOD CELL COUNT(-3.80-5.10 Million/uL) 4.49 ABSOLUTE MONOCYTES(-200-950 cells/uL) 744 ABSOLUTE EOSINOPHILS(-15-500 cells/uL) 122 HEMOGLOBIN(-11.7-15.5 g/dL) 14.8 EOSINOPHILS(- %) 2.0 WHITE BLOOD CELL COUNT(-3.8-10.8 Thousand/uL) 6.1 LYMPHOCYTES(- %) 25.2 MONOCYTES(- %) 12.2 Summary Purpose eClinicalWorks Submission
--- OUTSIDE RECORDS SUMMARY | 2018-04-06 09:25 | XMS REPORT ---
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
--- OUTSIDE RECORDS SUMMARY | 2018-04-06 09:25 | XMS REPORT ---
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
--- OUTSIDE RECORDS SUMMARY | 2018-04-06 09:25 | XMS REPORT ---
Author Author Mickey Anguiano [facility] eClinicalWorks Address Unknown Phone Unavailable Care Team Providers Care Supervisor Chassis Assembly Name Role Phone Mickey Anguiano Unavailable Encounters Encounter Location Date dexa Mickey Anguiano MD Jul 09, 2014 MRI [facility] Mickey Anguiano MD Jul 09, 2014 Social History Social History Element Qualifiers Date Reported Tobacco Use: . Are you a:: current smoker , How often do you smoke cigarettes?: every day, How many cigarettes a day do you smoke?: 6-10 Jul 11, 2014 Marital Status: . Jul 11, 2014 Caffeine: yes. frequency:, 1-5 Jul 11, 2014 Exercise: yes. rides bike Jul 11, 2014 Alcohol: socially. 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
--- OUTSIDE RECORDS SUMMARY | 2018-04-06 09:25 | XMS REPORT | Continuity of Care Document ---
Author Author [facility] Address Unknown Phone Unavailable Problems Problem Status Onset Date Classification Date Reported Comments Source Anticardiolipin antibody positive Active Problem 03/05/2018 Ko Annmarie Lupus anticoagulant positive Active Problem 03/05/2018 Ko Annmarie Rash Active Problem 03/05/2018 Ko Annmarie Other senior care drug therapy Active Problem 03/05/2018 Ko Anguiano Rheumatoid arthritis of multiple sites without rheumatoid factor Active Diagnosis 03/05/2018 Ko Anguiano Osteopenia of neck of left femur Active Problem 03/05/2018 Ko Annmarie Muscle spasm Active Problem 03/05/2018 Ko Anguiano Insomnia Active Problem 03/05/2018 Ko Anguiano Osteopenia Active Problem 08/08/2015 Ko Anguiano Rheumatoid arthritis Active Problem 08/08/2015 Ko Anguiano Unspecified vitamin D deficiency Active Problem 08/08/2015 Ko Anguiano Long-term use of other medications - High Risk Active Problem 08/08/2015 Ko Angiuano Pulmonary nodules Active Problem 03/05/2018 Ko Anguiano Medications Medication Details Route Status Patient Instructions Ordering Provider Order Date Source Hydrocodone-Acetaminophen 1 tablet as needed Orally Active 10- 325 MG Orally tid Anguiano 02/16/2018 Ko Anguiano PredniSONE 2 tablets Orally Active 5 MG Orally q am with food [place] 02/16/2018 Ko Anguiano Trazodone HCl 1 tablet at bedtime Orally Active 100 MG Orally Once a day Anguiano 12/15/2017 Ko Anguiano Medrol Dose Avery as directed Orally Active 4mg Orally once a day [place] 10/06/2017 Ko Anguiano Humira Pen 0.8 ml Subcutaneous Active 40 MG/0.8ML Subcutaneous every two weeks [place] 07/29/2017 Ko Anguiano Flexeril 1 tablet as needed Orally Active 10 MG Orally as needed [place] 07/10/2017 Ko Anguiano Medrol 1 tablet with food or milk in the morning Orally Active 4 MG Orally q am with food [place] 07/10/2017 Ko Anguiano Medrol Dose Avery as directed Orally Active 4mg Orally as directed [place] 07/02/2017 Ko Anguiano Medrol Dose Avery as directed Orally Active 4mg Orally as directed Anguiano 06/01/2017 Ko Anguiano Medrol Dose Avery as directed Orally Active 4mg Orally as directed [facility] 08/26/2016 Ko Anguiano Trazodone HCl 1 tablet at bedtime Orally Active 100 MG Orally Once a day [place] 07/04/2016 Ko Anguiano Enbrel SureClick 1 ml Subcutaneous Active 50 MG/ML Subcutaneous once a week [place] 04/22/2016 Ko Anguiano Enbrel 1 injection( sureclick pen) Subcutaneous Active 50 MG/ML Subcutaneous Once a week [place] 07/07/2015 Ko Anguiano Enbrel SureClick 1 ml Subcutaneous Active 50 MG/ML Subcutaneous once a week [place] 07/11/2014 Ko Anguiano Xarelto 1 tablet with food Orally Active 10 MG Orally Once a day [place] Ko Anguiano Benadryl not defined Orally Active otc Orally as needed Anguiano Ko Anguiano Plavix 1 tablet Orally Active 75 MG Orally Once a day [place] Ko Anguiano Trazodone HCl 1 tablet at bedtime Orally Active 100 MG Orally Once a day Anguiano Ko Anguiano Aspirin 1 tablet NA Active 81 mg once a day Anguiano Ko Anguiano Multivitamins as directed Orally Active Orally [place] Ko Anguiano Benadryl not defined Orally Active otc Orally as needed [place] Ko Anguiano Multivitamins as directed Orally Active Orally Anguiano Ko Anguiano Plavix 1 tablet Orally Active 75 MG Orally Once a day Anguiano Ko Anguiano Calcium + D as directed Orally Active Orally Anguiano Ko Anguiano Aspirin 1 tablet NA Active 81 mg once a day Anguiano Ko Anguiano Enbrel SureClick 1 ml Subcutaneous Active 50 MG/ML Subcutaneous once a week [place] Ko Anguiano Calcium + D as directed Orally Active Orally Anguiano Ko Anguiano Humira Pen 0.8 ml Subcutaneous Active 40 MG/0.8ML Subcutaneous ON HOLD Anguiano Ko Anguiano Trazodone HCl take 1 tablet by mouth every day Orally Active 100 MG Orally Once a day [place] Ko Anguiano Aspirin 1 tablet Orally Active 81 MG Orally Once a day Anguiano Ko Anguiano Enbrel 1 injection( sureclick pen) Subcutaneous Active 50 MG/ML Subcutaneous Once a week [place] Ko Anguiano Trazodone HCl TAKE 1 TABLET BY MOUTH EVERY NIGHT AT BEDTIME NA Active 100 Anguiano Ko Anguiano Trazodone HCl TAKE 1 TABLET BY MOUTH EVERY DAY NA Active 100 MG Anguiano Ko Anguiano Allergies, Adverse Reactions, Alerts Substance Category Reaction Severity Reaction type Status Date Reported Comments Source amoxilcillin Adverse Reaction swelling Adverse Reaction Active 02/16/2018 Ko Anguiano Sulfa Adverse Reaction Info Not Available Adverse Reaction Active 02/16/2018 Ko Anguiano Immunizations Immunization Date Given Site Status Last Updated Comments Source Results Order Name Results Value Reference Range Date Interpretation Comments Source Vital Signs Vital Sign Value Date Comments Source Weight 97.1 02/16/2018 Ko Anguiano Height 61 02/16/2018 Ko Anguiano Temperature Oral (F) 98.4 F 02/16/2018 Ko Anguiano Heart Rate 74 02/16/2018 Ko Anguiano Diastolic (mm Hg) 60 02/16/2018 Ko Anguiano Systolic (mm Hg) 98 02/16/2018 Ko Anguiano Weight 108.7 10/06/2017 Ko Anguiano Height 61.5 10/06/2017 Ko Anguiano Temperature Oral (F) 97.6 F 10/06/2017 Ko Anguiano Heart Rate 82 10/06/2017 Ko Anguiano Diastolic (mm Hg) 70 10/06/2017 Ko Anguiano Systolic (mm Hg) 102 10/06/2017 Ko Anguiano Weight 111.8 07/10/2017 Ko Anguiano Height 62 07/10/2017 Ko Anguiano Temperature Oral (F) 97.9 F 07/10/2017 Ko Anguiano Heart Rate 100 07/10/2017 Ko Anguiano Diastolic (mm Hg) 58 07/10/2017 Ko Anguiano Systolic (mm Hg) 100 07/10/2017 Ko Anguiano Weight 106.4 01/08/2017 Ko Anguiano Height 62 01/08/2017 Ko Anguiano Temperature Oral (F) 98.2 F 01/08/2017 Ko Anguiano Heart Rate 104 01/08/2017 Ko Anguiano Diastolic (mm Hg) 68 01/08/2017 Ko Anguiano Systolic (mm Hg) 100 01/08/2017 Ko Anguiano Weight 107 07/10/2016 Ko Anguiano Height 61 07/10/2016 Ko Anguiano Temperature Oral (F) 97.2 F 07/10/2016 Ko Anguiano Heart Rate 78 07/10/2016 Ko Anguiano Diastolic (mm Hg) 74 07/10/2016 Ko Anguiano Systolic (mm Hg) 114 07/10/2016 Ko Anguiano Weight 113 01/08/2016 Ko Anguiano Height 61 01/08/2016 Ko Anguiano Temperature Oral (F) 97.0 F 01/08/2016 Ko Anguiano Heart Rate 82 01/08/2016 Ko Anguiano Diastolic (mm Hg) 78 01/08/2016 Ko Anguiano Systolic (mm Hg) 122 01/08/2016 Ko Anguiano Weight 105 01/08/2015 Ko Anguiano Height 62 01/08/2015 Ko Anguiano Temperature Oral (F) 97.1 F 01/08/2015 Ko Anguiano Heart Rate 86 01/08/2015 Ko Anguiano Diastolic (mm Hg) 78 01/08/2015 Ko Anguiano Systolic (mm Hg) 110 01/08/2015 Ko Anguiano Weight 108 07/11/2014 Ko Anguiano Height 62 07/11/2014 Ko Anguiano Temperature Oral (F) 97.9 F 07/11/2014 Ko Anguiano Heart Rate 92 07/11/2014 Ko Anguiano Diastolic (mm Hg) 78 07/11/2014 Ko Anguiano Systolic (mm Hg) 110 07/11/2014 Ko Anguiano Encounters Location Location Details Encounter Type Encounter Number Reason For Visit Attending Provider ADM Date DC Date Status Source Mickey Anguiano MD [facility] [id number] 07/09/2014 07/09/2014 Ko Anguiano MD [facility] [id number] 07/09/2014 07/09/2014 Ko Anguiano MD [facility] [id number] 07/09/2014 07/09/2014 Ko Anguiano MD [facility] [id number] 07/09/2014 07/09/2014 Ko Anguiano MD [facility] [id number] 07/09/2014 07/09/2014 Ko Anguiano MD dexa [id number] 07/09/2014 07/09/2014 Ko Anguiano MD dexa [id number] 07/09/2014 07/09/2014 oK Anguiano MD dexa [id number] 07/09/2014 07/09/2014 Ko Anguiano MD dexa [id number] 07/09/2014 07/09/2014 Ko Anguiano MD dexa [id number] 07/09/2014 07/09/2014 Ko Anguiano MD [facility] [id number] 07/10/2014 07/10/2014 Ko Anguiano MD [facility] [id number] 07/10/2014 07/10/2014 Ko Anguiano MD [facility] [id number] 07/10/2014 07/10/2014 Ko Anguiano MD [facility] [id number] 07/10/2014 07/10/2014 Ko Anguiano MD [facility] [id number] 07/10/2014 07/10/2014 Ko Anguiano MD [facility] [id number] 07/10/2014 07/10/2014 Ko Anguiano MD [facility] [id number] 07/10/2014 07/10/2014 Ko Anguiano MD [facility] [id number] 07/10/2014 07/10/2014 Ko Anguiano MD [facility] [id number] 07/10/2014 07/10/2014 Ko Anguiano MD [facility] [id number] 07/10/2014 07/10/2014 Ko Anguiano MD dexa [id number] 07/10/2014 07/10/2014 Ko Anguiano MD dexa [id number] 07/10/2014 07/10/2014 Ko Anguiano MD dexa [id number] 07/10/2014 07/10/2014 Ko Anguiano MD dexa [id number] 07/10/2014 07/10/2014 Ko Anguiano MD dexa [id number] 07/10/2014 07/10/2014 Ko Anguiano MD dexa [id number] 07/10/2014 07/10/2014 Ko Anguiano MD dexa [id number] 07/10/2014 07/10/2014 Ko Anguiano MD dexa [id number] 07/10/2014 07/10/2014 Ko Anguiano MD dexa [id number] 07/10/2014 07/10/2014 Ko Anguiano MD dexa [id number] 07/10/2014 07/10/2014 Ko Anguiano MD 6m f/u per [id number] 07/11/2014 07/11/2014 Ko Anguiano MD 6m f/u per [id number] 07/11/2014 07/11/2014 Ko Anguiano MD 6m f/u per [id number] 07/11/2014 07/11/2014 Ko Anguiano MD 6m f/u per [id number] 07/11/2014 07/11/2014 Ko Anguiano MD 6m f/u per [id number] 07/11/2014 07/11/2014 Ko Anguiano MD 6m f/u per [id number] 07/11/2014 07/11/2014 Ko Anguiano MD 6m f/u per [id number] 07/11/2014 07/11/2014 Ko Anguiano MD 6m f/u per [id number]-fh2obnm5n1fe 07/11/2014 07/11/2014 Ko Anguiano MD 6m f/u per [id number] 07/11/2014 07/11/2014 Ko Anguiano MD 6m f/u per [id number] 07/11/2014 07/11/2014 Ko Anguiano MD 6m f/u per [id number]-[id number] 07/11/2014 07/11/2014 Ko Anguiano MD 6m f/u per [id number] 07/11/2014 07/11/2014 Ko Anguiano MD 6m f/u per [id number] 07/11/2014 07/11/2014 Ko Anguiano MD [employer] [id number] 07/25/2014 07/25/2014 Ko Anguiano MD [employer] [id number] 07/25/2014 07/25/2014 Ko Anguiano MD [employer] [id number] 07/25/2014 07/25/2014 Ko Anguiano MD [employer] [id number] 07/25/2014 07/25/2014 Ko Anguiano MD [employer] [id number] 07/25/2014 07/25/2014 Ko Anguiano MD [employer] [id number] 07/25/2014 07/25/2014 Ko Anguiano MD [employer] [id number] 07/25/2014 07/25/2014 Ko Anguiano MD [employer] [id number] 07/25/2014 07/25/2014 Ko Anguiano MD [employer] [id number] 07/25/2014 07/25/2014 Ko Anguiano MD [employer] [id number] 07/25/2014 07/25/2014 Ko Anguiano MD [employer] [id number] 07/25/2014 07/25/2014 Ko Anguiano MD [employer] [id number] 07/25/2014 07/25/2014 Ko Anguiano MD [facility] [id number] 01/02/2015 01/02/2015 Ko Anguiano MD MRI [id number] 01/02/2015 01/02/2015 Ko Anguiano MD MRI [id number] 01/02/2015 01/02/2015 Ko Anguiano MD MRI [id number] 01/02/2015 01/02/2015 Ko Anguiano MD MRI [id number] 01/02/2015 01/02/2015 Ko Anguiano MD MRI [id number] 01/02/2015 01/02/2015 Ko Anguiano MD MRI [id number] 01/02/2015 01/02/2015 Ko Anguiano MD MRI [id number] 01/02/2015 01/02/2015 Ko Anguiano MD MRI [id number] 01/02/2015 01/02/2015 Ko Anguiano MD MRI [id number] 01/02/2015 01/02/2015 oK Anguiano MD MRI [id number] 01/02/2015 01/02/2015 Ko Anguiano MD MRI [id number] 01/02/2015 01/02/2015 Ko Anguiano MD 6m f/u per [id number] 01/08/2015 01/08/2015 Ko Anguiano MD 6m f/u per [id number] 01/08/2015 01/08/2015 Ko Anguiano MD 6m f/u per [id number] 01/08/2015 01/08/2015 Ko Anguiano MD 6m f/u per [id number] 01/08/2015 01/08/2015 Ko Anguiano MD 6m f/u per [id number] 01/08/2015 01/08/2015 Ko Anguiano MD 6m f/u per [id number] 01/08/2015 01/08/2015 Ko Anguiano MD 6m f/u per [id number] 01/08/2015 01/08/2015 Ko Anguiano MD 6m f/u per [id number] 01/08/2015 01/08/2015 Ko Anguiano MD 6m f/u per [id number] 01/08/2015 01/08/2015 Ko Anguiano MD 6m f/u per [id number] 01/08/2015 01/08/2015 Ko Anguiano MD 6m f/u per [id number] 01/08/2015 01/08/2015 Ko Anguiano MD 6m f/u per [id number]-x3bd-[id number] 01/08/2015 01/08/2015 Ko Anguiano MD enbrel [id number] 04/13/2015 04/13/2015 Ko Anguiano MD enbrel [id number] 04/13/2015 04/13/2015 Ko Anguiano MD enbrel [id number] 04/13/2015 04/13/2015 Ko Anguiano MD enbrel [id number] 04/13/2015 04/13/2015 Ko Anguiano MD enbrel [id number] 04/13/2015 04/13/2015 Ko Anguiano MD enbrel [id number] 04/13/2015 04/13/2015 Ko Anguiano MD enbrel [id number] 04/13/2015 04/13/2015 Ko Anguiano MD enbrel [id number] 04/13/2015 04/13/2015 Ko Anguiano MD enbrel [id number] 04/13/2015 04/13/2015 Ko Anguiano MD enbrel [id number] 04/13/2015 04/13/2015 Ko Anguiano MD pain [id number] 04/16/2015 04/16/2015 Ko Anguiano MD pain [id number] 04/16/2015 04/16/2015 Ko Anguiano MD pain [id number] 04/16/2015 04/16/2015 Ko Anguiano MD pain [id number] 04/16/2015 04/16/2015 Ko Anguiano MD pain [id number] 04/16/2015 04/16/2015 Ko Anguiano MD pain [id number] 04/16/2015 04/16/2015 Ko Anguiano MD pain [id number] 04/16/2015 04/16/2015 Ko Anguiano MD pain [id number] 04/16/2015 04/16/2015 Ko Anguiano MD pain [id number] 04/16/2015 04/16/2015 Ko Anguiano MD pain [id number] 04/16/2015 04/16/2015 Ko Anguiano MD pain [id number] 04/23/2015 04/23/2015 Ko Anguiano MD pain [id number] 04/23/2015 04/23/2015 Ko Anguiano MD pain [id number] 04/23/2015 04/23/2015 Ko Anguiano MD pain [id number] 04/23/2015 04/23/2015 Ko Anguiano MD pain [id number] 04/23/2015 04/23/2015 Ko Anguiano MD pain [id number] 04/23/2015 04/23/2015 Ko Anguiano MD pain [id number] 04/23/2015 04/23/2015 Ko Anguiano MD pain [id number] 04/23/2015 04/23/2015 Ko Anguiano MD pain [id number] 04/23/2015 04/23/2015 Ko Anguiano MD pain [id number]-v3sq-[id number] 04/23/2015 04/23/2015 Ko Anguiano MD add on [id number] 04/23/2015 04/23/2015 Ko Anguiano MD add on [id number]-20m89eqop025 04/23/2015 04/23/2015 Ko Anguiano MD add on [id number]-[id number] 04/23/2015 04/23/2015 Ko Anguiano MD add on [id number] 04/23/2015 04/23/2015 Ko Anguiano MD add on [id number] 04/23/2015 04/23/2015 Ko Anguiano MD add on [id number]-08iz-txf0-2405i9g871p4 04/23/2015 04/23/2015 Ko Anguiano MD add on [id number] 04/23/2015 04/23/2015 Ko Anguiano MD add on [id number] 04/23/2015 04/23/2015 Ko Anguiano MD add on [id number] 04/23/2015 04/23/2015 Ko Anguiano MD add on [id number] 04/23/2015 04/23/2015 Ko Anguiano MD Unknown [id number] 08/07/2015 08/07/2015 Ko Anguiano MD Unknown [id number] 08/07/2015 08/07/2015 Ko Anguiano MD Unknown [id number] 08/07/2015 08/07/2015 Ko Anguiano MD Unknown [id number] 08/07/2015 08/07/2015 Ko Anguiano MD Unknown [id number] 08/07/2015 08/07/2015 Ko Anguiano MD Unknown [id number] 08/07/2015 08/07/2015 Ko Anguiano MD Unknown [id number] 08/07/2015 08/07/2015 Ko Anguiano MD Unknown [id number] 08/07/2015 08/07/2015 Ko Anguiano MD 6m f/u per [id number] 01/08/2016 01/08/2016 Ko Anguiano MD 6m f/u per [id number] 01/08/2016 01/08/2016 Ko Anguiano MD 6m f/u per [id number] 01/08/2016 01/08/2016 Ko Anguiano MD 6m f/u per [id number] 01/08/2016 01/08/2016 Ko Anguiano MD 6m f/u per [id number]-859i-[id number] 01/08/2016 01/08/2016 Ko Anguiano MD 6m f/u per [id number] 01/08/2016 01/08/2016 Ko Anguiano MD 6m f/u per [id number]-bnx5z87nn7g8 01/08/2016 01/08/2016 Ko Anguiano MD Enbrel RX Refill [id number] 03/28/2016 03/28/2016 Ko Anguiano MD Enbrel RX Refill [id number] 03/28/2016 03/28/2016 Ko Anguiano MD Enbrel RX Refill [id number] 03/28/2016 03/28/2016 Ko Anguiano MD Enbrel RX Refill [id number] 03/28/2016 03/28/2016 Ko Anguiano MD Enbrel RX Refill [id number] 03/28/2016 03/28/2016 oK Anguiano MD Enbrel RX Refill [id number] 03/28/2016 03/28/2016 Ko Anguiano MD Enbrel [id number] 04/22/2016 04/22/2016 Ko Anguiano MD Enbrel [id number] 04/22/2016 04/22/2016 Ko Anguiano MD [facility] [id number] 04/22/2016 04/22/2016 Ko Anguiano MD Enbrel [id number] 04/22/2016 04/22/2016 Ko Anguiano MD [facility] [id number] 04/22/2016 04/22/2016 Ko Anguiano MD Angioplasty [id number] 04/29/2016 04/29/2016 Ko Anguiano MD Angioplasty [id number] 04/29/2016 04/29/2016 Ko Anguiano MD Angioplasty [id number] 04/29/2016 04/29/2016 Ko Anguiano MD Angioplasty [id number] 04/29/2016 04/29/2016 MD Franchesca Diallodone rx [id number] 07/04/2016 07/04/2016 MD Cheyanne Diallo rx [id number] 07/04/2016 07/04/2016 Ko Anguiano MD Trazadone rx [id number] 07/04/2016 07/04/2016 Ko Anguiano MD 6m f/u per [id number] 07/10/2016 07/10/2016 Ko Anguiano MD 6m f/u per [id number] 07/10/2016 07/10/2016 Ko Anguiano MD Flare up [id number] 08/26/2016 08/26/2016 Ko Anguiano Procedures Procedure Code Date Perfomer Comments Source
--- OUTSIDE RECORDS SUMMARY | 2018-04-06 09:25 | XMS REPORT ---
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
--- OUTSIDE RECORDS SUMMARY | 2018-04-06 09:25 | XMS REPORT ---
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
--- OUTSIDE RECORDS SUMMARY | 2018-04-06 09:25 | XMS REPORT ---
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
--- OUTSIDE RECORDS SUMMARY | 2018-04-06 09:25 | XMS REPORT ---
Author Author Mickey Anguiano [facility] e[employer] Address Unknown Phone Unavailable Care Team Providers Care Aviation Support Equipment Repairer Name Role Phone Mickey Anguiano Unavailable Encounters Encounter Location Date dexa Mickey Anguiano MD Jul 09, 2014 MRI [facility] Mickey Anguiano MD Jul 09, 2014 Problems Problem Type Condition ICD-9 Code Onset Dates Condition Status Problem Osteopenia 733.90 Active Problem Rheumatoid arthritis 714.0 Active Problem Unspecified vitamin D deficiency 268.9 Active Problem Long-term (current) use of other medications - High Risk V58.69 Active Social History Social History Element Qualifiers Date Reported Caffeine: yes. frequency:, 1-5 January 09, 2014 Exercise: yes. rides bike January 09, 2014 Alcohol: socially. Type: , Frequency: ,Years: , Determination: January 09, 2014 Summary Purpose eClinicalWorks Submission
--- OUTSIDE RECORDS SUMMARY | 2018-04-06 09:25 | XMS REPORT ---
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
--- OUTSIDE RECORDS SUMMARY | 2018-04-06 09:25 | XMS REPORT ---
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 Assessment Other residential (current) drug therapy Z79.899 Active Problem Muscle spasm M62.838 Active Problem Rash R21 Active Problem Osteopenia of neck of left femur M85.852 Active Problem Other terminal superintendent (current) drug therapy Z79.899 Active Problem Rheumatoid arthritis of multiple sites without rheumatoid factor M06.09 Active Problem 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 Problem Lupus anticoagulant positive R76.0 Active Medications Medication Code System Code Instructions Start Date End Date Status Dosage Flexeril [facility] 26615324083 10 MG Orally as needed Jul 10, 2017 Active 1 tablet as needed Humira Pen [facility] 39562719637 40 MG/0.8ML Subcutaneous every two weeks Jul 29, 2017 Active 0.8 ml Medrol Dose Avery [facility] 80722891856 4mg Orally once a day October 06, 2017 October 12, 2017 Active as directed Xarelto [facility] 83941038333 10 MG Orally Once a day Active 1 tablet with food Medrol [facility] 73718036358 4 MG Orally q am with food Jul 10, 2017 Active 1 tablet with food or milk in the morning Benadryl [facility] 98570317336 otc Orally as needed Active not defined Plavix ND 31283472627 75 MG Orally Once a day Active 1 tablet Trazodone HCl [facility] 92443863077 100 MG Orally Once a day Active 1 tablet at bedtime Aspirin [facility] 15237277020 81 mg once a day Active 1 tablet Multivitamins [facility] 89963158061 Orally Active as directed Vital Signs Date/Time: October 06, 2017 BMI 20.20 Index Weight 108.7 lbs Height 61.5 in Temperature 97.6 F Cardiac Monitoring Heart Rate 82 /min Blood Pressure Diastolic 70 mm Hg Blood Pressure Systolic 102 mm Hg Results No Known Results Summary Purpose eClinicalWorks Submission
--- OUTSIDE RECORDS SUMMARY | 2018-04-06 09:25 | XMS REPORT ---
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
--- OUTSIDE RECORDS SUMMARY | 2018-04-06 09:25 | XMS REPORT ---
Author Author Mickey Anguiano Organization [employer] Address Unknown Phone Unavailable Care Team Providers Care Tobacco Sampler Name Role Phone Mickey Anguiano CP Unavailable Allergies No Known Allergies Problems Problem Type Condition Code Onset Dates Condition Status Problem Rheumatoid arthritis of multiple sites without rheumatoid factor M06.09 Active Problem Osteopenia of neck of left femur M85.852 Active Problem Muscle spasm M62.838 Active Problem Insomnia G47.00 Active Problem Lupus anticoagulant positive R76.0 Active Problem Other plumbing mechanic (current) drug therapy Z79.899 Active Problem Rash R21 Active Problem 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
--- OUTSIDE RECORDS SUMMARY | 2018-04-06 09:25 | XMS REPORT ---
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 Problem Lupus anticoagulant positive R76.0 Active Problem Rash R21 Active Assessment Rheumatoid arthritis of multiple sites without rheumatoid factor M06.09 Active Assessment Rash R21 Active Problem Rheumatoid arthritis of multiple sites without rheumatoid factor M06.09 Active Problem Other rodent exterminator (current) drug therapy Z79.899 Active Medications Medication Code System Code Instructions Start Date End Date Status Dosage Benadryl [facility] [address]-14 otc Orally as needed Active not defined Multivitamins [facility] [address]-01 Orally Active as directed Plavix [facility] [address]-45 75 MG Orally Once a day Active 1 tablet Calcium + D [facility] [address]-72 Orally Active as directed Enbrel SureClick [facility] [address]-81 50 MG/ML Subcutaneous once a week Apr 22, 2016 Jul 07, 2017 Active 1 ml Aspirin [facility] 26314-81614 81 mg once a day Active 1 tablet Trazodone HCl [facility] 33980586331 100 MG Orally Once a day Active 1 tablet at bedtime Vital Signs Date/Time: January 08, 2017 BMI 19.46 Index Weight 106.4 lbs Height 62 in Temperature 98.2 F Cardiac Monitoring Heart Rate 104 /min Blood Pressure Diastolic 68 mm Hg Blood Pressure Systolic 100 mm Hg Results Name Result Date Reference Range Unit Abnormality Flag COMPREHENSIVE METABOLIC PANEL W/EGFR ----CALCIUM 9.4 20170108 8.6-10.2 mg/dL N ----CARBON DIOXIDE 25 20170108 20-31 mmol/L N ----ALT 18 20170108 6-29 U/L N ----CREATININE 0.71 06973031 0.50-1.10 mg/dL N ----AST 21 20170108 10-30 U/L N ----eGFR NON-AFR. [place] 107 06041037 > OR=60 mL/min/1.73m2 N ----ALKALINE PHOSPHATASE 48 20170108 33-115 U/L N ----eGFR 123 14902251 > OR=60 mL/min/1.73m2 N ----BILIRUBIN, TOTAL 0.3 63820130 0.2-1.2 mg/dL N ----BUN/CREATININE RATIO NOT APPLICABLE 20170108 6-22 (calc) ----ALBUMIN/GLOBULIN RATIO 1.3 69638037 1.0-2.5 (calc) N ----SODIUM 139 20170108 135-146 mmol/L N ----GLOBULIN 3.3 89092780 1.9-3.7 g/dL (calc) N ----POTASSIUM 4.1 05147470 3.5-5.3 mmol/L N ----GLUCOSE 78 86658740 65-99 mg/dL N ----CHLORIDE 104 18227003 98-110 mmol/L N ----ALBUMIN 4.2 01405475 3.6-5.1 g/dL N ----UREA NITROGEN (BUN) 15 20170108 7-25 mg/dL N ----PROTEIN, TOTAL 7.5 09473682 6.1-8.1 g/dL N SED RATE BY MODIFIED WESTERGREN ----SED RATE BY MODIFIED WESTERGREN 11 20170108 < OR=20 mm/h N C-REACTIVE PROTEIN ----C-REACTIVE PROTEIN <0.10 89121735 <0.80 mg/dL N CBC (INCLUDES DIFF/PLT) ----MCHC 33.9 45487354 32.0-36.0 g/dL N ----MCH 32.8 70085991 27.0-33.0 pg N ----PLATELET COUNT 261 22962777 140-400 Thousand/uL N ----RDW 12.0 45249297 11.0-15.0 % N ----BASOPHILS 0.3 53543625 % N ----ABSOLUTE NEUTROPHILS 4977 79085222 9532-5473 cells/uL N ----ABSOLUTE LYMPHOCYTES 1214 85537529 850-3900 cells/uL N ----MPV 10.9 17656246 7.5-12.5 fL N ----ABSOLUTE BASOPHILS 21 71468466 0-200 cells/uL N ----HEMATOCRIT 40.7 59354003 35.0-45.0 % N ----NEUTROPHILS 70.1 63488609 % N ----MCV 96.7 38767212 80.0-100.0 fL N ----RED BLOOD CELL COUNT 4.21 98196253 3.80-5.10 Million/uL N ----ABSOLUTE MONOCYTES 831 22932869 200-950 cells/uL N ----ABSOLUTE EOSINOPHILS 57 59537312 15-500 cells/uL N ----HEMOGLOBIN 13.8 86833867 11.7-15.5 g/dL N ----EOSINOPHILS 0.8 43538086 % N ----WHITE BLOOD CELL COUNT 7.1 01591655 3.8-10.8 Thousand/uL N ----LYMPHOCYTES 17.1 05158344 % N ----MONOCYTES 11.7 32326681 % N Summary Purpose eClinicalWorks Submission
--- OUTSIDE RECORDS SUMMARY | 2018-04-06 09:25 | XMS REPORT ---
Author Author Mickey Anguiano Organization eClinicalWorks Address Unknown Phone Unavailable Care Team Providers Care Ultrasound Tech Name Role Phone Mickey Anguiano CP Unavailable Allergies No Known Allergies Problems Problem Type Condition Code Onset Dates Condition Status Problem Rheumatoid arthritis of multiple sites without rheumatoid factor M06.09 Active Problem Osteopenia of neck of left femur M85.852 Active Problem Muscle spasm M62.838 Active Problem Insomnia G47.00 Active Problem Lupus anticoagulant positive R76.0 Active Problem Other termite control representative (current) drug therapy Z79.899 Active Problem Rash R21 Active Problem 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
--- OUTSIDE RECORDS SUMMARY | 2018-04-06 09:25 | XMS REPORT ---
Author Author Mickey Anguiano [facility] eClinicalWorks Address Unknown Phone Unavailable Care Team Providers Care Senior Air Director Name Role Phone Mickey Anguiano Unavailable Allergies, Adverse Reactions, Alerts Substance Reaction Event Type Sulfa Info Not Available Non Drug Allergy amoxilcillin swelling Non Drug Allergy Encounters Encounter Location Date dexa Mickey Anguiano MD Jul 09, 2014 [facility] Mickey Anguiano MD Jul 09, 2014 6m f/u per Dr.Waller Mickey Anguiano MD Jul 11, 2014 Problems Problem Type Condition ICD-9 Code Onset Dates Condition Status Assessment Unspecified vitamin D deficiency 268.9 Active Problem Osteopenia 733.90 Active Problem Rheumatoid arthritis 714.0 Active Problem Unspecified vitamin D deficiency 268.9 Active Assessment Long-term (current) use of other medications - High Risk V58.69 Active Assessment Osteopenia 733.90 Active Problem Long-term (current) use of other medications - High Risk V58.69 Active Assessment Rheumatoid arthritis 714.0 Active Medications Medication Code System Code Instructions Start Date End Date Status Dosage Enbrel SureClick [facility] [address]-81 50 MG/ML Subcutaneous once a week Jul 11, 2014 January 07, 2015 Active 1 ml Trazodone HCl [facility] [address]-13 100 MG Orally Once a day Active take 1 tablet by mouth every day Benadryl [facility] [address]-37 otc Orally as needed Active Unknown Calcium + D [facility] [address]-71 Orally qd Active Unknown [facility] [address]-45 75 MG Orally Once a day Active 1 tablet Aspirin [facility] [address]-98 81 MG Orally Once a day Active 1 tablet Enbrel [facility] [address]-58 50 MG/ML Subcutaneous Once a week Active 1 injection( sureclick pen) Multivitamins [facility] [address]-54 Orally Active 1 tab Social History Social History Element Qualifiers Date [...] 2014 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
--- OUTSIDE RECORDS SUMMARY | 2018-04-06 09:25 | XMS REPORT ---
Author Author Mickey Anguiano Organization eClinicalWorks Address Unknown Phone Unavailable Care Team Providers Care Bar Porter Name Role Phone Mickey Anguiano CP Unavailable Allergies No Known Allergies Problems Problem Type Condition Code Onset Dates Condition Status Problem Rheumatoid arthritis of multiple sites without rheumatoid factor M06.09 Active Problem Osteopenia of neck of left femur M85.852 Active Problem Muscle spasm M62.838 Active Problem Insomnia G47.00 Active Problem Lupus anticoagulant positive R76.0 Active Problem Other manager terminal (current) drug therapy Z79.899 Active Problem Rash R21 Active Problem 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
--- OUTSIDE RECORDS SUMMARY | 2018-04-06 09:25 | XMS REPORT ---
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 45768415408 100 MG Orally Once a day Active 1 tablet at bedtime Results No Known Results Summary Purpose eClinicalWorks Submission
--- OUTSIDE RECORDS SUMMARY | 2018-04-06 09:25 | XMS REPORT ---
Author Author Mickey Anguiano [facility] eClinicalWorks Address Unknown Phone Unavailable Care Team Providers Care Stock Puller Name Role Phone Mickey Anguiano CP Unavailable Allergies, Adverse Reactions, Alerts Substance Reaction Event Type amoxilcillin swelling Non Drug Allergy Sulfa Info Not Available Non Drug Allergy Problems Problem Type Condition Code Onset Dates Condition Status Assessment Rheumatoid arthritis of multiple sites without rheumatoid factor M06.09 Active Problem Other [facility] (current) drug therapy Z79.899 Active Problem Rheumatoid arthritis of multiple sites without rheumatoid factor M06.09 Active Problem Insomnia G47.00 Active Problem Osteopenia of neck of left femur M85.852 Active Problem Pulmonary nodules R91.8 Active Problem 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 Problem Lupus anticoagulant positive R76.0 Active Problem Muscle spasm M62.838 Active Problem Rash R21 Active Assessment Pulmonary nodules R91.8 Active Assessment Other [facility] (current) drug therapy Z79.899 Active Assessment 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 Assessment Lupus anticoagulant positive R76.0 Active Medications Medication Code System Code Instructions Start Date End Date Status Dosage Hydrocodone-Acetaminophen [facility] 34217178437 10-325 MG Orally tid Feb 16, 2018 Mar 18, 2018 Active 1 tablet as needed Medrol ND 92592871144 4 MG Orally q am with food Jul 10, 2017 Active 1 tablet with food or milk in the morning Plavix ND 18465215471 75 MG Orally Once a day Active 1 tablet Xarelto ND 69432683293 10 MG Orally Once a day Active 1 tablet with food PredniSONE ND 59983636476 5 MG Orally q am with food Feb 16, 2018 Jun 16, 2018 Active 2 tablets Benadryl ND 68038582626 otc Orally as needed Active not defined Humira Pen ND 32118787486 40 MG/0.8ML Subcutaneous ON HOLD Active 0.8 ml Aspirin [facility] 65483002125 81 mg once a day Active 1 tablet Flexeril [facility] 44378476457 10 MG Orally as needed Jul 10, 2017 Active 1 tablet as needed Multivitamins [facility] 51593328966 Orally Active as directed Trazodone HCl [facility] 15183469192 100 MG Orally Once a day December 15, 2017 Active 1 tablet at bedtime Vital Signs Date/Time: Feb 16, 2018 BMI 18.34 Index Weight 97.1 lbs Height 61 in Temperature 98.4 F Cardiac Monitoring Heart Rate 74 /min Blood Pressure Diastolic 60 mm Hg Blood Pressure Systolic 98 mm Hg Results No Known Results Summary Purpose eClinicalWorks Submission
--- OUTSIDE RECORDS SUMMARY | 2018-04-06 09:25 | XMS REPORT ---
Author Author Mickey Anguiano Organization eClinicalWorks Address Unknown Phone Unavailable Care Team Providers Care Assembler Trim Name Role Phone Mickey Anguiano CP Unavailable Allergies No Known Allergies Problems Problem Type Condition Code Onset Dates Condition Status Problem Rheumatoid arthritis of multiple sites without rheumatoid factor M06.09 Active Problem Osteopenia of neck of left femur M85.852 Active Problem Muscle spasm M62.838 Active Problem Insomnia G47.00 Active Problem Lupus anticoagulant positive R76.0 Active Problem Other slab lifting supervisor (current) drug therapy Z79.899 Active Problem Rash R21 Active Problem 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
--- OUTSIDE RECORDS SUMMARY | 2018-04-06 09:25 | XMS REPORT ---
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 48810926960 otc Orally as needed Active not defined Enbrel SureClick [facility] 85260076960 50 MG/ML Subcutaneous once a week Active [address] [facility] 10074287071 10 MG Orally bid Jul 10, 2017 October 08, 2017 Active 1 tablet as needed Calcium + D [facility] 58065306983 Orally Active as directed Multivitamins ND 79605265464 Orally Active as directed Plavix [facility] 66002577394 75 MG Orally Once a day Active [address] [facility] 55350653732 4 MG Orally q am with food Jul 10, 2017 October 08, 2017 Active 1 tablet with food or milk in the morning Trazodone HCl [facility] 13789463822 100 MG Orally Once a day Active 1 tablet at bedtime Aspirin [facility] 13010927920 81 mg once a day Active 1 tablet Vital Signs Date/Time: Jul 10, 2017 BMI 20.45 Index Weight 111.8 lbs Height 62 in Temperature 97.9 F Cardiac Monitoring Heart Rate 100 /min Blood Pressure Diastolic 58 mm Hg Blood Pressure Systolic 100 mm Hg Results Name Result Date Reference Range Unit Abnormality Flag CBC (INCLUDES DIFF/PLT) ----ABSOLUTE NEUTROPHILS 1908 [id number] 6793-6106 cells/uL N ----MPV 11.0 70519684 7.5-12.5 fL N ----EOSINOPHILS 1.6 37268296 % N ----HEMOGLOBIN 14.7 23186958 11.7-15.5 g/dL N ----MONOCYTES 14.9 31177017 % N ----HEMATOCRIT 42.7 71971127 35.0-45.0 % N ----LYMPHOCYTES 32.8 20974964 % N ----MCV 97.7 55206931 80.0-100.0 fL N ----NEUTROPHILS 50.2 09790716 % N ----MCH 33.6 49863803 27.0-33.0 pg H ----ABSOLUTE BASOPHILS 19 53288669 0-200 cells/uL N ----MCHC 34.4 84584784 32.0-36.0 g/dL N ----BASOPHILS 0.5 54061892 % N ----ABSOLUTE EOSINOPHILS 61 39925931 15-500 cells/uL N ----RDW 11.7 83299253 11.0-15.0 % N ----WHITE BLOOD CELL COUNT 3.8 49793475 3.8-10.8 Thousand/uL N ----PLATELET COUNT 298 40330423 140-400 Thousand/uL N ----ABSOLUTE MONOCYTES 566 78773283 200-950 cells/uL N ----RED BLOOD CELL COUNT 4.37 49214279 3.80-5.10 Million/uL N ----ABSOLUTE LYMPHOCYTES 1246 61315594 850-3900 cells/uL N HEPATITIS PANEL ----HEPATITIS C ANTIBODY NON-REACTIVE [id number] NON-REACTIVE N ----HEPATITIS B CORE AB TOTAL NON-REACTIVE 95722640 NON-REACTIVE N ----SIGNAL TO CUT-OFF 0.06 43315806 <1.00 N ----HEPATITIS A AB, TOTAL NON-REACTIVE 38709909 NON-REACTIVE N ----HEPATITIS B SURFACE ANTIGEN NON-REACTIVE 87509891 NON-REACTIVE N ----HEPATITIS B SURFACE ANTIBODY QL NON-REACTIVE 88296539 NON-REACTIVE N C-REACTIVE PROTEIN ----C-REACTIVE PROTEIN 0.5 71339214 <8.0 mg/L N QUANTIFERON(R)-TB GOLD ----TB-NIL <0.00 47768752 IU/mL N ----NIL 0.03 58453363 IU/mL N ----MITOGEN-NIL 1.42 66746080 IU/mL N ----QUANTIFERON(R)-TB GOLD NEGATIVE [id number] NEGATIVE N COMPREHENSIVE METABOLIC PANEL W/EGFR ----BUN/CREATININE RATIO NOT APPLICABLE 20170710 6-22 (calc) ----eGFR 128 20170710 > OR=60 mL/min/1.73m2 N ----eGFR NON-AFR. [place] 111 20170710 > OR=60 mL/min/1.73m2 N ----CREATININE 0.64 20170710 0.50-1.10 mg/dL N ----CHLORIDE 104 20170710 98-110 mmol/L N ----POTASSIUM 4.1 20170710 3.5-5.3 mmol/L N ----SODIUM 141 20170710 135-146 mmol/L N ----PROTEIN, TOTAL 7.4 20170710 6.1-8.1 g/dL N ----ALBUMIN 3.9 32938458 3.6-5.1 g/dL N ----GLOBULIN 3.5 63512747 1.9-3.7 g/dL (calc) N ----ALBUMIN/GLOBULIN RATIO 1.1 20170710 1.0-2.5 (calc) N ----UREA NITROGEN (BUN) 9 20170710 7-25 mg/dL N ----GLUCOSE 94 20170710 65-99 mg/dL N ----CARBON DIOXIDE 27 20170710 20-31 mmol/L N ----CALCIUM 9.1 81630031 8.6-10.2 mg/dL N ----AST 26 20170710 10-30 U/L N ----ALT 28 20170710 6-29 U/L N ----BILIRUBIN, TOTAL 0.4 20170710 0.2-1.2 mg/dL N ----ALKALINE PHOSPHATASE 45 20170710 33-115 U/L N SED RATE BY MODIFIED WESTERGREN ----SED RATE BY MODIFIED HAI [id number] < OR=20 mm/h N COCCIDIOIDES ANTIBODY, ID ----COCCIDIOIDES ANTIBODY, ID NEGATIVE [id number] HISTOPLASMA ANTIBODY, ID ----HISTOPLASMA ANTIBODY, ID NEGATIVE [id number] Summary Purpose eClinicalWorks Submission
--- OUTSIDE RECORDS SUMMARY | 2018-04-06 09:25 | XMS REPORT ---
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
--- OUTSIDE RECORDS SUMMARY | 2018-04-06 09:26 | XMS REPORT ---
Author Author Mickey Anguiano eClinicalWorks Address Unknown Phone Unavailable Care Team Providers Care Wrapper Hands Sprayer Name Role Phone Mickey Anguiano CP Unavailable Encounters Encounter Location Date Industrial Commercial Groundskeeper Mickey Anguiano MD Jul 25, 2014 MRI Mickey Anguiano MD January 02, 2015 6m f/u per Dr.Waller Mickey Anguiano MD January 08, 2015 enpatt Anguiano MD Apr 13, 2015 dexa Mickey Anguiano MD Jul 09, 2014 MRI Bi Hands Mickey Anguiano MD Jul 09, 2014 6m f/u per Dr.Waller Mickey Anguiano MD Jul 11, 2014 add on Mickey Anguiano MD Apr 23, 2015 pain Mickey Anguiano MD Apr 16, 2015 pain Mickey Anguiano MD Apr 23, 2015 6m f/u per Dr.Waller Mickey Anguiano MD Jul 10, 2016 Flare up Mickey Anguiano MD August 26, 2016 Angioplasty Mickey Anguiano MD Apr 29, 2016 Trazadone rx Mickey Anguiano MD Jul 04, 2016 Enbrel RX Refill Mickey Anguiano MD Mar 28, 2016 Royer Anguiano MD Apr 22, 2016 Unknown Mickey Anguiano MD Aug 07, 2015 6m f/u per Dr.Waller Mickey Anguiano MD January 08, 2016 Problems Problem Type Condition ICD-9 Code Onset Dates Condition Status Problem Lupus anticoagulant positive R76.0 Active Problem Rheumatoid arthritis of multiple sites without rheumatoid factor M06.09 Active Problem 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 Are you a:: former smoker , How long has it been since you last smoked?: 6-12 months, Additional Findings: Tobacco Non-User: Ex-cigarette smoker Jul 10, 2016 Marital Status: . Jul 10, 2016 Caffeine: yes. frequency:, 1-5 Jul 10, 2016 Exercise: yes. rides bike Jul 10, 2016 Alcohol: socially. 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
--- OUTSIDE RECORDS SUMMARY | 2018-04-06 09:26 | XMS REPORT ---
Author Author Mickey Anguiano eClinicalWorks Address Unknown Phone Unavailable Care Team Providers Care Aurist Name Role Phone Mickey Anguiano CP Unavailable Encounters Encounter Location Date Television Reporter Mickey Anguiano MD Jul 25, 2014 MRI Mickey Anguiano MD January 02, 2015 6m f/u per Dr.Waller Mickey Anguiano MD January 08, 2015 enbrel Mickey Agnuiano MD Apr 13, 2015 dexa Mickey Anguiano MD Jul 09, 2014 MRI Bi Hands Mickey Anguiano MD Jul 09, 2014 6m f/u per Dr.Waller Mickey Anguiano MD Jul 11, 2014 add on Mickey Anguiano MD Apr 23, 2015 pain Mickey Anguiano MD Apr 16, 2015 pain Mickey Anguiano MD Apr 23, 2015 Problems Problem Type Condition ICD-9 Code Onset [...]
--- OUTSIDE RECORDS SUMMARY | 2018-04-06 09:26 | XMS REPORT ---
Author Author Mickey Anguiano eClinicalWorks Address Unknown Phone Unavailable Care Team Providers Care Vice President Financial Name Role Phone Mickey Anguiano CP Unavailable Encounters Encounter Location Date Job Tracer Mickey Anguiano MD Jul 25, 2014 MRI [...] pain Mickey Anguiano MD Apr 23, 2015 Angioplasty Mickey Anguiano MD Apr 29, 2016 Trazadone rx Mickey Anguiano MD Jul 04, 2016 Enbrel RX Refill Mickey Anguiano MD Mar 28, 2016 Royer Anguiano MD Apr 22, 2016 Unknown Mickey Anguiano MD Aug 07, 2015 6m f/u per Dr.Waller Mickey Anguiano MD January 08, 2016 Problems Problem Type Condition ICD-9 Code Onset Dates Condition Status Problem Other long term care pharmacist (current) drug therapy Z79.899 Active Problem Rheumatoid arthritis of multiple sites without rheumatoid factor M06.09 Active Medications Medication Code System Code Instructions Start Date End Date Status Dosage Trazodone HCl [facility] [address]-10 100 MG Orally Once a day Jul 04, 2016 Active 1 tablet at bedtime Social History Social History Element Qualifiers Date Reported Tobacco Use: . Are you a:: current smoker , How often do you smoke cigarettes?: every day, How many cigarettes a day do you smoke?: 6-10 January 08, 2016 Marital Status: . January 08, 2016 Caffeine: yes. frequency:, 1-5 January 08, 2016 Exercise: yes. rides bike January 08, 2016 Alcohol: socially. 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
--- OUTSIDE RECORDS SUMMARY | 2018-04-06 09:26 | XMS REPORT ---
Author Author Mickey Anguiano eClinicalWorks Address Unknown Phone Unavailable Care Team Providers Care Regional Sales Representative Name Role Phone Mickey Anguiano CP Unavailable Encounters Encounter Location Date Order Processing Specialist Mickey Anguiano MD Jul 25, 2014 MRI Mickey Anguiano MD January 02, 2015 6m f/u per Dr.Waller Mickey Anguiano MD January 08, 2015 enbrel Mickey Anguiano MD Apr 13, 2015 dexa Mickey Anguiano MD Jul 09, 2014 MRI Bi Hands Mickey Anguiano MD Jul 09, 2014 6m f/u per Dr.Waller Mickey Anguiano MD Jul 11, 2014 add on Mickey Anguiano MD Apr 23, 2015 pain Mickey Anguiano MD Apr 16, 2015 pain Mickey Anguiano MD Apr 23, 2015 Enbrel RX Refill Mickey Anguiano MD Mar 28, 2016 Enfrankl Mickey Anguiano MD Apr 22, 2016 Unknown Mickey Anguiano MD Aug 07, 2015 6m f/u per Dr.Waller Mickey Anguiano MD January 08, 2016 Problems Problem Type Condition ICD-9 Code Onset Dates Condition Status Problem Other terminal operations manager (current) drug therapy Z79.899 Active Problem Rheumatoid arthritis of multiple sites without rheumatoid factor M06.09 Active Medications Medication Code System Code Instructions Start Date End Date Status Dosage Enbrel SureClick MEDISPAN [address]-68 50 MG/ML Subcutaneous once a week Apr 22, 2016 Active 1 ml Social History Social History Element Qualifiers Date [...]
--- OUTSIDE RECORDS SUMMARY | 2018-04-06 09:26 | XMS REPORT ---
Author Author Mickey Anguiano eClinicalWorks Address Unknown Phone Unavailable Care Team Providers Care Centrifuge Operator Name Role Phone Mickey Anguiano CP Unavailable Encounters Encounter Location Date Lead Die Molder Mickey Anguiano MD Jul 25, 2014 MRI [...]
--- OUTSIDE RECORDS SUMMARY | 2018-04-06 09:26 | XMS REPORT ---
Author Author Mickey Anguiano eClinicalWorks Address Unknown Phone Unavailable Care Team Providers Care Propeller Engineer Name Role Phone Mickey Anguiano CP Unavailable Encounters Encounter Location Date Assembly Line Supervisor Mickey Anguiano MD Jul 25, 2014 MRI [...] Angioplasty Mickey Anguiano MD Apr 29, 2016 Enbrel RX Refill Mickey Anguiano MD Mar 28, 2016 Enpatt Anguiano MD Apr 22, 2016 Unknown Mickey Anguiano MD Aug 07, 2015 6m f/u per Dr.Waller Mickey Anguiano MD January 08, 2016 Problems Problem Type Condition ICD-9 Code Onset Dates Condition Status Problem Other [facility] (current) drug therapy Z79.899 Active Problem Rheumatoid arthritis of multiple sites without rheumatoid factor M06.09 Active Social History Social History Element Qualifiers [...]
--- OUTSIDE RECORDS SUMMARY | 2018-04-06 09:26 | XMS REPORT ---
Author Author Mickey Anguiano eClinicalWorks Address Unknown Phone Unavailable Care Team Providers Care Credit Collections Rep Name Role Phone Mickey Anguiano CP Unavailable Encounters Encounter Location Date Coat Cutter Mickey Anguiano MD Jul 25, 2014 MRI Mickey Anguiano MD January 02, 2015 6m f/u per Dr.Waller Mickey Anguiano MD January 08, 2015 enbrel Mickey Anguiano MD Apr 13, 2015 dexa Mickey Anguiano MD Jul 09, 2014 Unknown Mickey Anguiano MD Aug 07, 2015 MRI Bi Hands Mickey Anguiano MD Jul 09, 2014 6m f/u per Dr.Waller Mickey Anguiano MD Jul 11, 2014 add on Mickey Anguiano MD Apr 23, 2015 pain Mickey Anguiano MD Apr 16, 2015 pain Mickey Anguiano MD Apr 23, 2015 Problems Problem Type Condition ICD-9 Code Onset Dates Condition Status Problem Other [facility] (current) drug therapy Z79.899 Active Problem Unspecified vitamin D deficiency 268.9 Active Problem Rheumatoid arthritis of multiple sites without rheumatoid factor M06.09 Active Problem Long-term (current) use of other medications - High Risk V58.69 Active Problem Osteopenia 733.90 Active Problem Rheumatoid arthritis 714.0 Active Medications Medication Code System Code Instructions Start Date End Date Status Dosage Enbrel MEDISPAN [address]-40 50 MG/ML Subcutaneous Once a week Active 1 injection( sureclick pen) Social History Social History Element Qualifiers Date Reported Tobacco Use: . Are you a:: current smoker , How often do you smoke cigarettes?: every day, How many cigarettes a day do you smoke?: 6-10 Jul 10, 2015 Marital Status: . Jul 10, 2015 Caffeine: yes. frequency:, 1-5 Jul 10, 2015 Exercise: yes. rides bike Jul 10, 2015 Alcohol: socially. 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
--- OUTSIDE RECORDS SUMMARY | 2018-04-06 09:26 | XMS REPORT ---
Author Author Mickey Anguiano eClinicalWorks Address Unknown Phone Unavailable Care Team Providers Care It Infrastructure Engineer Name Role Phone Mickey Anguiano CP Unavailable Allergies, Adverse Reactions, Alerts Substance Reaction Event Type amoxilcillin swelling Non Drug Allergy Sulfa Info Not Available Non Drug Allergy Encounters Encounter Location Date Automation Architect Mickey Anguiano MD Jul 25, 2014 MRI Mickey Anguiano MD January 02, 2015 6m f/u per Dr.Waller Mickey Anguiano MD January 08, 2015 enbrel Mickey Anguiano MD Apr 13, 2015 dexa Mickey Anguiano MD Jul 09, 2014 Unknown Mickey Anguiano MD Aug 07, 2015 MRI Bi Hands Mickey Anguiano MD Jul 09, 2014 6m f/u per Dr.Waller Mickey Anguiano MD January 08, 2016 6m f/u per Dr.Waller Mickey Anguiano MD Jul 11, 2014 add on Mickey Anguiano MD Apr 23, 2015 pain Mickey Anguiano MD Apr 16, 2015 pain Mickey Anguiano MD Apr 23, 2015 Problems Problem Type Condition ICD-9 Code Onset Dates Condition Status Problem Other [facility] (current) drug therapy Z79.899 Active Assessment Rheumatoid arthritis of multiple sites without rheumatoid factor M06.09 Active Problem Rheumatoid arthritis of multiple sites without rheumatoid factor M06.09 Active Assessment Other [facility] (current) drug therapy Z79.899 Active Medications Medication Code System Code Instructions Start Date End Date Status Dosage Aspirin [facility] [address]78 81 mg once a day Active 1 tablet Trazodone HCl [facility] 83343782626 100 MG Active TAKE 1 TABLET BY MOUTH EVERY DAY Calcium + D [facility] [address]-15 Orally Active as directed Enbrel [facility] [address]-24 50 MG/ML Subcutaneous Once a week Active 1 injection( sureclick pen) Multivitamins [facility] [address]-81 Orally Active as directed Plavix [facility] [address]-72 75 MG Orally Once a day Active 1 tablet Benadryl [facility] [address]-69 otc Orally as needed Active Unknown Social History Social History Element Qualifiers Date Reported Tobacco Use: . Are you a:: current smoker , How often do you smoke cigarettes?: every day, How many cigarettes a day do you smoke?: 6-January 08, 2016 Marital Status: . January 08, 2016 Caffeine: yes. frequency:, 1-5 January 08, 2016 Exercise: yes. rides bike January 08, 2016 Alcohol: socially. 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
--- OUTSIDE RECORDS SUMMARY | 2018-04-06 09:26 | XMS REPORT ---
Author Author Mickey Anguiano eClinicalWorks Address Unknown Phone Unavailable Care Team Providers Care Full Service Vending Driver Name Role Phone Mickey Anguiano CP Unavailable Encounters Encounter Location Date Electrifier Operator Mickey Anguiano MD Jul 25, 2014 [...] Refill Mickey Anguiano MD Mar 28, 2016 Unknown Mickey Anguiano MD Aug 07, 2015 6m f/u per Dr.Waller Mickey Anguiano MD January 08, 2016 Problems Problem Type Condition ICD-9 Code Onset Dates Condition Status Problem Other retirement (current) drug therapy Z79.899 Active Problem Rheumatoid arthritis of multiple sites without rheumatoid factor M06.09 Active Medications Medication Code System Code Instructions Start Date End Date Status Dosage Enbrel MEDISPAN [address]-68 50 MG/ML Subcutaneous Once a week Active [...]
--- OUTSIDE RECORDS SUMMARY | 2018-04-06 09:26 | XMS REPORT ---
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
--- OUTSIDE RECORDS SUMMARY | 2018-04-06 09:26 | XMS REPORT ---
Author Author Mickey Anguiano eClinicalWorks Address Unknown Phone Unavailable Care Team Providers Care Paste Worker Name Role Phone Mickey Anguiano CP Unavailable Allergies, Adverse Reactions, Alerts Substance Reaction Event Type amoxilcillin swelling Non Drug Allergy Sulfa Info Not Available Non Drug Allergy Encounters Encounter Location Date Veterinary Bacteriologist Mickey Anguiano MD Jul 25, 2014 MRI [...] Dr.Waller Mickey Anguiano MD Jul 10, 2016 Angioplasty Mickey Anguiano MD Apr 29, 2016 Trazadone rx Mickye Anguiano MD Jul 04, 2016 Enbrel RX Refill Mickey Anguiano MD Mar 28, 2016 Royer Anguiano MD Apr 22, 2016 Unknown Mickey Anguiano MD Aug 07, 2015 6m f/u per Dr.Waller Mickey Anguiano MD January 08, 2016 Problems Problem Type Condition ICD-9 Code Onset Dates Condition Status Assessment Lupus anticoagulant positive R76.0 Active Problem Lupus anticoagulant positive R76.0 Active Problem Rheumatoid arthritis of multiple sites without rheumatoid factor M06.09 Active Problem 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 Assessment Other care home (current) drug therapy Z79.899 Active Assessment 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 Problem Other care home (current) drug therapy Z79.899 Active Assessment Rheumatoid arthritis of multiple sites without rheumatoid factor M06.09 Active Medications Medication Code System Code Instructions Start Date End Date Status Dosage Enbrel SureClick [facility] [address]-53 50 MG/ML Subcutaneous once a week Apr 22, 2016 Active 1 ml Plavix [facility] [address]-88 75 MG Orally Once a day Active 1 tablet Multivitamins [facility] [address]-03 Orally Active as directed Benadryl [facility] [address]-12 otc Orally as needed Active Unknown Calcium + D [facility] [address]-43 Orally Active as directed Trazodone HCl [facility] 17713248331 100 MG Active TAKE 1 TABLET BY MOUTH EVERY DAY Aspirin [facility] [address]-73915 81 mg once a day Active 1 tablet Social History Social History Element Qualifiers Date [...] 2016 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
== END 2018-04-03 18:38 | DRG 271 ==
LOC: ER 10:05 → ERHOLD 10:38 → MED/SURG2 15:46 → ICU 20:22 → MED/SURG 03-27 17:00
PROVIDERS: ADMIT Internal Medicine Interventional Cardiology; ATTEND Internal Medicine Interventional Cardiology
PROC: 04CM3ZZ Extirpation of Matter from Right Popliteal Artery, Percutaneous Approach (ICD-10-PCS; 2018-03-23)
PROC: 04CP3ZZ Extirpation of Matter from Right Anterior Tibial Artery, Percutaneous Approach (ICD-10-PCS; 2018-03-23)
PROC: 3E05317 Introduction of Other Thrombolytic into Peripheral Artery, Percutaneous Approach (ICD-10-PCS; 2018-03-23)
PROC: 04CM3ZZ Extirpation of Matter from Right Popliteal Artery, Percutaneous Approach (ICD-10-PCS; principal; 2018-03-24)
PROC: 04CP3ZZ Extirpation of Matter from Right Anterior Tibial Artery, Percutaneous Approach (ICD-10-PCS; 2018-03-24)
PROC: 04PY33Z Removal of Infusion Device from Lower Artery, Percutaneous Approach (ICD-10-PCS; 2018-03-24)
PROC: 0Y6H0Z2 Detachment at Right Lower Leg, Mid, Open Approach (ICD-10-PCS; 2018-03-26)
DX: I70.261 Atherosclerosis of native arteries of extremities with gangrene, right leg (principal); E87.1 Hypo-osmolality and hyponatremia; I70.211 Atherosclerosis of native arteries of extremities with intermittent claudication, right leg; M06.9 Rheumatoid arthritis, unspecified; Z88.0 Allergy status to penicillin; Z88.2 Allergy status to sulfonamides; R33.9 Retention of urine, unspecified; D72.819 Decreased white blood cell count, unspecified; D64.9 Anemia, unspecified; D69.6 Thrombocytopenia, unspecified; E87.5 Hyperkalemia; E83.51 Hypocalcemia; N39.41 Urge incontinence; R50.81 Fever presenting with conditions classified elsewhere; R53.81 Other malaise
CPT/HCPCS: 36217; 36247; 36415; 37185; 37211; 71045; 71046; 75710; 77001; 80048; 80053; 80202; 81001; 82550; 82553; 84484; 85025; 85347; 85610; 85730; 87040; 88305; 88307; 88311; 93005; 93970; 96361; 96365; 96366; 97139; 99284; C1766; C1769; J1100; J1200; J1644; J1885; J2001; J2185; J2250; J2270; J2405; J2550; J2710; J2997; J3370; J3480; J7030; J7120; J7512; Q9967

== ENCOUNTER 2019-03-17 12:51 | Outpatient (RCR) | payer OTHER ==
[~2019-03-17 12:51] MED LIST changes: +NORCO 10-325 T1 EACH PO; +PREDNISONE20 MG PO; +eliquis PO
== END 2019-03-21 ==
LOC: PT 12:51
PROVIDERS: ATTEND Internal Medicine
DX: Z89.511 Acquired absence of right leg below knee (principal); R26.9 Unspecified abnormalities of gait and mobility; M62.81 Muscle weakness (generalized); Z91.81 History of falling

== ENCOUNTER 2019-04-19 12:44 | Outpatient (RCR) | payer OTHER | END 2019-04-21 | LOC: PT 12:44 | PROVIDERS: ATTEND Internal Medicine | DX: Z89.511 Acquired absence of right leg below knee (principal); R26.9 Unspecified abnormalities of gait and mobility; M62.81 Muscle weakness (generalized); Z91.81 History of falling ==

== ENCOUNTER 2019-04-25 12:59 | Outpatient (RCR) | payer OTHER | END 2019-05-21 | LOC: PT 12:59 | PROVIDERS: ATTEND Internal Medicine | DX: Z89.511 Acquired absence of right leg below knee (principal); R26.9 Unspecified abnormalities of gait and mobility; Z91.81 History of falling; M62.81 Muscle weakness (generalized) ==